=== PATIENT | female | born 1945 | race Caucasian/White ===

== ENCOUNTER 2021-02-28 03:23 | Inpatient (IN) | payer MEDICARE, SELFPAY ==
[2021-02-28] VITALS (15 sets, daily range): BP systolic 117–178; BP diastolic 41–64; PULSE 52–61; RESP 14–18; TEMP 35.8–36.8; O2SAT 96–100; BMI 28.5; BMI 27.8
[2021-02-28 03:45] LABS: Bedside Glucose 113 mg/dL (70-110)
--- NOTE | 2021-02-28 03:59 | CT_ITS ---
EXAM: CT ABDOMEN AND PELVIS WITHOUT INTRAVENOUS CONTRAST CLINICAL INDICATION: lower abdominal pain -- current tx for c-diff TECHNIQUE: Helically acquired images were obtained of the abdomen and pelvis without intravenous contrast. CTDI vol (mGy): 17 DLP vol (mGy-cm): [address] exam was performed using one or more of the following dose reduction techniques: automated exposure control, adjustment of the mA and/or kV according to patient size, and/or use of iterative reconstruction technique. This report was created using [employer] report generation technology. COMPARISON: None. FINDINGS: LOWER THORAX: Moderate-sized pleural effusions with adjacent passive atelectasis. Cardiomegaly. Lung bases are clear. ABDOMEN: LIVER: Unremarkable. Homogeneous. GALLBLADDER AND BILE DUCTS: Unremarkable. No calcified gallstones. No gallbladder distention or wall edema. No intra- or extrahepatic biliary ductal dilation. PANCREAS: Unremarkable. No focal cystic mass. SPLEEN: Few punctate calcified granulomas from old granulomatous disease. Normal size without focal cystic or solid mass. ADRENALS: Unremarkable. No nodules. KIDNEYS AND URETERS: No hydronephrosis. Normal renal size and position. STOMACH AND BOWEL: No colitis or diverticulitis. Circumferential thickening of the wall of the sigmoid colon and a portion of the distal descending colon raises concern for colitis of infectious or inflammatory etiology. No stomach or bowel distention. PELVIS: APPENDIX: No evidence of acute appendicitis. BLADDER: Decompressed bladder with stranding and prominent wall. Correlate with urinalysis to exclude cystitis. REPRODUCTIVE: Unremarkable as visualized. No mass. ABDOMEN and PELVIS: INTRAPERITONEAL SPACE: Complex appearing fluid collection in the left pelvis as seen on image 120 series 2. This probably measures 7.8 x 4.3 cm. No free air. 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 Severe degenerative disc disease at L5-S1. . No suspicious lytic or blastic abnormality. SOFT TISSUES: Anasarca. No discrete abdominal or pelvic wall hernia. VASCULATURE: Unremarkable. Abdominal aorta is non-dilated. LYMPH NODES: Unremarkable. No enlarged lymph nodes. CT/Abdomen/Pelvis without Cont IMPRESSION: 1. 7.8 x 4.3 cm complex fluid collection in the left pelvis. Differential includes but is not limited abscess. 2. Circumferential thickening of the wall of the sigmoid colon and a portion of the distal descending colon raises concern for colitis of infectious or inflammatory etiology. 3. Decompressed bladder with stranding and prominent wall. Correlate with urinalysis to exclude cystitis. Electronically Signed: John Jacobson MD at 4:35 EST Tel , Service support ,
--- NOTE | 2021-02-28 04:08 | EDS_ITS ---
HPI History of Present Illness Chief Complaint: Abd Pain Informant: patient and EMS Narrative Narrative: Patient brought by EMS from [facility] reported increasing confusion. Patient states must been acting goofy therefore EMS was called. She has been at the facility for 2 days after being hospitalized from February 05. She is diagnosed with C. difficile infection. She reports her diarrhea is improving. She states she has had abdominal pain for a long time and is still there. Denies abdominal surgery history. Denies urinary symptoms. Denies vomiting. Denies fevers. She has not been at this facility. She states she was taking care of at [facility]. From paperwork she is currently on vancomycin orally. She is on Plavix reports history of strokes. No coronary history. History of diabetes and hypercholesterolemia. History of ESRD on HD. [facility] Medical History (Updated 02/28/21 @ 07:[address] Gian John DO) Atrial fibrillation Congestive heart failure (CHF) COPD (chronic obstructive pulmonary disease) Diabetes Dialysis patient Kidney disease Pelvic abscess Home Medications Vitamin B and C 1 tab PO/SL DAILY 02/28/21 [History Last Taken Unknown] Zofran 4 mg PO/SL PRN PRN 02/28/21 [History Last Taken Unknown] allopurinol 150 mg PO DAILY 02/28/21 [History Last Taken Unknown] atorvastatin 40 mg PO [facility] 02/28/21 [History Last Taken Unknown] clonidine HCl 0.1 mg PO DAILY 02/28/21 [History Last Taken Unknown] clopidogrel 75 mg PO [facility] 02/28/21 [History Last Taken Unknown] ergocalciferol (vitamin D2) [Vitamin D2] 50,000 unit PO DAILY 02/28/21 [History Last Taken Unknown] escitalopram oxalate 20 mg PO [facility] 02/28/21 [History Last Taken Unknown] furosemide 40 mg PO DAILY 02/28/21 [History Last Taken Unknown] guaifenesin 10 ml PO/SL PRN PRN 02/28/21 [History Last Taken Unknown] hydralazine 50 mg PO Q8H 02/28/21 [History Last Taken Unknown] insulin glargine [Lantus Solostar U-100 Insulin] 15 unit SUBCUT [facility] 02/28/21 [History Last Taken Unknown] isosorbide mononitrate 60 mg PO [facility] 02/28/21 [History Last Taken Unknown] lisinopril 10 mg PO DAILY 02/28/21 [History Last Taken Unknown] metoprolol tartrate 25 mg PO TID 02/28/21 [History Last Taken Unknown] sevelamer carbonate 800 mg PO [facility] 02/28/21 [History Last Taken Unknown] sodium bicarbonate 1,850 mg PO TID 02/28/21 [History Last Taken Unknown] vancomycin 125 mg PO TID 02/28/21 [History Last Taken Unknown] Allergy/AdvReac Type Severity Reaction Status Date / Time Tetanus Vaccines and Toxoid Allergy Swelling Verified 02/28/21 03:31 Family History (Updated 02/28/21 @ 05:[address] Curry Ferro MD) Other Heart disease Peptic ulcer disease Social History Smoking Status: Former smoker ROS ROS ED Constitutional Constitutional ED: Denies chills, fever(s) or sweats Eyes Eyes: Denies change in vision ENT ENT ED: Denies dysphagia or sore throat Cardiovascular Cardiovascular: Denies chest pain, leg edema, palpitations or racing heartbeat Respiratory/Chest Respiratory/Chest: Denies cough, dyspnea or dyspnea on exertion Gastrointestinal Gastrointestinal: Reports abdominal pain and diarrhea; Denies nausea or vomiting Genitourinary Genitourinary ED: Denies dysuria, hematuria or urinary frequency Musculoskeletal Musculoskeletal: Denies back pain, extremity pain or neck pain Integumentary Denies rash or wounds Neurologic Neurologic: Denies headache(s), paresthesias or weakness EXAM Physical Exam Const Vital Signs: 02/28/21 03:25 02/28/21 03:31 02/28/21 05:01 Temperature 96.4 F L 97.4 F L Temperature Source Temporal Temporal Pulse Rate 60 55 L Respiratory Rate 16 18 Blood Pressure 117/54 L 131/64 H Blood Pressure Mean 75 86 Pulse Ox 99 98 Oxygen Delivery Method Room Air Room Air Positive well nourished and well developed General Appearance ED: well developed and NAD HEENT Reports dry mucous membranes normocephalic and atraumatic Mouth ED: Yes dry mucous membranes Mouth: dry mucous membranes Eyes PERRL, EOMs intact bilaterally and conjunctivae normal General Eye ED: Yes normal appearance of both eyes Neck no lymphadenopathy and supple General: Negative for tenderness Chest Wall Chest: Negative for tenderness Resp normal respiratory effort and normal air movement Effort and Inspection: symmetric chest movement; Negative for respiratory distress Cardio regular rate, regular rhythm and no murmurs Peripheral Pulses: pulses 2+ throughout GI normal to inspection, nondistended, normoactive bowel sounds GI Narrative: Tender palpation lower quadrant no guarding or rebound. Palpation: Negative for guarding or rebound tenderness present Back/Spine no CVA tenderness and no thoracic nor lumbar tenderness Extremity normal to inspection General Extremety ED: Negative for edema or tenderness General Extremity: Negative for edema Neuro oriented x3 and no sensory deficits noted Sensorium / Orientation: awake and alert Skin no rashes or lesions noted and no wounds MDM MDM MDM Narrative Medical decision making narrative: Patient afebrile vital signs stable. She is alert and oriented x3. She is tender in the lower quadrant on exam. Reports diarrhea is improving. With her pain on exam work-up was initiated. Abdominal labs white count 12.3 bands of 7. Hemoglobin 11.7. Creatinine 5.06 BUN 36. She does have end-stage renal disease on dialysis, potassium of 4.4. Slight transaminitis AST 164, ALT 184, alk phos 248, total bilirubin 0.8. Lipase is 165. CT scan abdomen pelvis per radiology concerns for complex fluid collection left pelvis of 7.8 x 4.3 cm with abscess as a differential. Also circumferential thickening of the wall of the sigmoid colon and a portion of descending colon concerns for colitis. Currently on treat meant for C. difficile. With her concerning abscess increasing leukocytosis with bands, blood cultures and lactic acid added. Zosyn is added. Records reviewed from [facility] with patient visit over at [facility], white count 3 days ago was 8.2. She did have a noted CT scan a week ago per radiology and report at their facility reported concerns for left adnexal cystic structure. Reviewing of imagings myself appears to be more lateral also more enlarged compared to previous read. I discussed with hospitalist, Dr. Ferro for admission. 0700: I received a call back from surgeon Dr. Singh updated patient's presentation findings. He will see her as a consult. Lab Data Attestation: I reviewed the patient's lab results. Labs: Laboratory Results - last 24 hr 02/28/21 02/28/21 02/28/21 03:35 03:35 03:41 WBC 12.3 H RBC 4.39 Hgb 11.7 L Hct 36.8 L MCV 83.8 MCH 26.7 L MCHC 31.8 L RDW Std Deviation 57.2 H RDW Coeff of Jacinto 18.9 H Plt Count 179 MPV 10.4 Neut % (Auto) Not Reportable Absolute Neuts (auto) 10.2 H Absolute Lymphs (auto) 0.98 Total Counted 100 Neutrophils % (Manual) 76 H Band Neutrophils % 7 H Lymphocytes % (Manual) 8 L Monocytes % (Manual) 3 Metamyelocytes % 3 H Myelocytes % 2 H Promyelocytes % 1 H Diff Path Review May foll Platelet Estimate ADEQUATE RBC Morphology NORM C+C Anisocytosis 2+ Sodium 135 L Potassium 4.4 Chloride 98 Carbon Dioxide 29.0 Anion Gap 8 BUN 36 H Creatinine 5.06 H Estim Creat Clear Calc 8.30 Est GFR (MDRD) Af Amer 11 L Est GFR (MDRD) Non-Af 9 L BUN/Creatinine Ratio 7.1 L Glucose 95 Lactic Acid Calcium 7.8 L Total Bilirubin 0.80 AST 164 H ALT 184 H Alkaline Phosphatase 248 H Total Protein 5.3 L Albumin 1.5 L Globulin 3.8 Albumin/Globulin Ratio 0.4 L Lipase 165 Urine Color Urine Clarity Urine pH Ur Specific [place] Urine Protein Urine Glucose (UA) Urine Ketones Urine Occult Blood Urine Nitrite Urine Bilirubin Urine Urobilinogen Ur Leukocyte Esterase Urine RBC Urine WBC Ur Squamous Epith Cells Ur Transition Epith Cell Ur Renal Epithelial Cell Amorphous Sediment Urine Bacteria Urine Mucus POC Glucose 113 H 02/28/21 02/28/21 04:35 05:00 WBC RBC Hgb Hct MCV MCH MCHC RDW Std Deviation RDW Coeff of Jacinto Plt Count MPV Neut % (Auto) Absolute Neuts (auto) Absolute Lymphs (auto) Total Counted Neutrophils % (Manual) Band Neutrophils % Lymphocytes % (Manual) Monocytes % (Manual) Metamyelocytes % Myelocytes % Promyelocytes % Diff Path Review Platelet Estimate RBC Morphology Anisocytosis Sodium Potassium Chloride Carbon Dioxide Anion Gap BUN Creatinine Estim Creat Clear Calc Est GFR (MDRD) Af Amer Est GFR (MDRD) Non-Af BUN/Creatinine Ratio Glucose Lactic Acid 1.3 Calcium Total Bilirubin AST ALT Alkaline Phosphatase Total Protein Albumin Globulin Albumin/Globulin Ratio Lipase Urine Color Yellow Urine Clarity Cloudy Urine pH 7.0 Ur Specific [place] 1.010 Urine Protein 100 H Urine Glucose (UA) Normal Urine Ketones Negative Urine Occult Blood 10 H Urine Nitrite Positive H Urine Bilirubin Negative Urine Urobilinogen Normal Ur Leukocyte Esterase 500 H Urine RBC 0-5 SEEN Urine WBC >100 SEEN Ur Squamous Epith Cells 0-5 SEEN Ur Transition Epith Cell 0-5 SEEN Ur Renal Epithelial Cell 0-5 SEEN Amorphous Sediment 1+ Urine Bacteria 4+ Urine Mucus 0 SEEN POC Glucose Radiography Diagnostic Testing: Clinical Impression(s) from Imaging Studies Abdomen/Pelvis CT 02/28/21 03:59 IMPRESSION: 1. 7.8 x 4.3 cm complex fluid collection in the left pelvis. Differential includes but is not limited abscess. 2. Circumferential thickening of the wall of the sigmoid colon and a portion of the distal descending colon raises concern for colitis of infectious or inflammatory etiology. 3. Decompressed bladder with stranding and prominent wall. Correlate with urinalysis to exclude cystitis. Electronically Signed: John Jacobson MD at 4:35 EST Tel , Service support , Discharge Plan Triage Chief Complaint: Abd Pain ED Provider: Gian John Dx/Rx/DC Orders Clinical Impression: C. difficile colitis, Intra-abdominal abscess, Acute UTI, End-stage renal disease on hemodialysis Primary Care Provider: Valentín Escobar Disposition Disposition: Acute Care Hospital
[2021-02-28 04:11] LABS: Hematocrit 36.8 % (37-47); Hemoglobin 11.7 g/dL (12.0-15.0); Mean Corp Hgb Conc 31.8 g/dL (32-36); Mean Corpuscular Hgb 26.7 pg (27.0-32.0); Mean Corpuscular Volume 83.8 fL (81-99); Mean Platelet Vol. 10.4 fl (6.2-12.0); POSITIVE COUNT YES; POSITIVE MORPHOLOGY YES; Platelet Count 179 K/mm3 (150-450); RBC Distribution Width CV 18.9 % (11.6-14.6); RBC Distribution Width SD 57.2 fl (35.1-43.9); Red Blood Count 4.39 M/mm3 (4.2-5.4); White Blood Count 12.3 K/mm3 (4.4-11.0)
[2021-02-28 04:13] LABS: Differential Indicated MANUAL DIFF
[2021-02-28 04:25] LABS: ALB/GLOB Ratio 0.4 RATIO (0.9-2.4); AST(SGOT) 164 U/L (15-37); Alanine Aminotransfer ALT/SGPT 184 U/L (13-56); Albumin, Serum 1.5 g/dL (3.2-5.0); Alkaline Phosphatase 248 U/L (45-117); Anion Gap 8 (5-15); BUN 36 mg/dL (7-18); BUN/Creat Ratio 7.1 RATIO (10-20); Calcium,Total 7.8 mg/dL (8.5-10.1); Chloride 98 mmol/L (98-107); Creatinine, Serum 5.06 mg/dL (0.55-1.02); EST Glomerular Filtration Rate 9 mL/min (>60); Est Glom Filt Rate - Afr Amer 11 mL/min (>60); Globulin 3.8 g/dL (2.2-4.2); Glucose 95 mg/dL (74-106); Lipase 165 U/L (73-393); Potassium 4.4 mmol/L (3.5-5.1); Protein, Total 5.3 g/dL (6.4-8.2); Sodium Level 135 mmol/L (136-145)
[2021-02-28 04:43] LABS: Mucous, Urine 0 SEEN /hpf (<or=2+)
[2021-02-28] MEDS: 0.9% Normal Saline 1,000 ML 1000 ML IV (04:45)
[2021-02-28 04:46] LABS: Absolute Neutrophil Count 10.2 X10^3/uL (2.0-7.7)
[2021-02-28 04:47] LABS: Absolute Lymphocyte Count 0.98 X10^3/uL (0.83-4.51); Anisocytosis 2+; Lymphocyte 8 % (19-41); Metamyelocyte 3 % (0-1); Monocyte 3 % (0-10); Myelocyte 2 % (0-0); Neutrophil-Band 7 % (0-5); Neutrophil-Segmented 76 % (47-70); Platelet Estimate ADEQUATE (ADEQ); Promyelocyte 1 % (0-0); Red Cell Morphology NORM C+C NORMAL (NORM C&C); Total Cells Counted 100 (MANUAL DIFF)
[2021-02-28 05:03] LABS: Color, Urine Yellow (Yellow); Glucose, Dipstick Normal (Normal); Ketone-Dipstick Negative (Negative); Leukocyte Esterase-Dipstick 500 /ul (Negative); Nitrite-Dipstick Positive (Negative); Occult Blood-Urine 10 /ul (Negative); Protein-Dipstick 100 mg/dl (Negative); Urine Bilirubin Dipstick Negative (Negative); Urine Clarity Cloudy (Clear); Urine Urobilinogen Normal (Normal)
[2021-02-28 05:12] LABS: Amorphous Sediment 1+; Bacteria 4+ /hpf (None Seen); Red Blood Cells-Urine 0-5 SEEN /hpf (0-5); Renal Epithelial Cells 0-5 SEEN /hpf (0-5); Squamous Epithelial Cells - UA 0-5 SEEN /hpf (5-10); Transitional Epithelial - Ur 0-5 SEEN /hpf (0-5); White Blood Cells >100 SEEN /hpf (0-5)
--- NOTE | 2021-02-28 05:21 | HP.PCM.HOS_ITS ---
HPI - General HPI Narrative JESSIE VAN, is a 75 F with a significant history of end-stage renal disease; atrial fibrillation; COPD; diabetes mellitus; CVA with residual left-sided numbness and on Plavix; who presents at the emergency department with excruciating left lower nonradiating abdominal pain that has been going on since December to January 2021. She reports nausea and vomiting. Last time she vomited was 3 to 4 weeks ago. She denies fever. She reports chills. She had diarrhea but diarrhea is improving. She reports anorexia. Patient was admitted at summertime on 02/20/2021 through 02/25/2021. Patient is currently at the senior care. Patient has completed a course of Dificid and is still on vancomycin 125 mg p.o. 3 times a day. At [facility] reportedly patient had VRE in the urine but it was time as colonization it was not treated. Imaging at [facility] showed a complex multilocular cystic mass in the left adnexa measuring 5.9 x 4.2 cm in diameter, unchanged from that of 12/20/2020. On his presentation initial concern at the senior care was that patient was having altered mental status. However from review of paramedics notes when a primary is got there her altered mental status had resolved. Patient did not want to come to the hospital but patient was reminded by nurses that she also have abdominal pain so she should come to the hospital. Patient subsequently complied [facility] Medical History (Updated 02/28/21 @ 05:[address] Curry Ferro MD) Atrial fibrillation Congestive heart failure (CHF) COPD (chronic obstructive pulmonary disease) Diabetes Dialysis patient Kidney disease Pelvic abscess Home Medications Vitamin B and C 1 tab PO/SL DAILY 02/28/21 [History Last Taken Unknown] Zofran 4 mg PO/SL PRN PRN 02/28/21 [History Last Taken Unknown] allopurinol 150 mg PO DAILY 02/28/21 [History Last Taken Unknown] atorvastatin 40 mg PO [facility] 02/28/21 [History Last Taken Unknown] clonidine HCl 0.1 mg PO DAILY 02/28/21 [History Last Taken Unknown] clopidogrel 75 mg PO [facility] 02/28/21 [History Last Taken Unknown] ergocalciferol (vitamin D2) [Vitamin D2] 50,000 unit PO DAILY 02/28/21 [History Last Taken Unknown] escitalopram oxalate 20 mg PO [facility] 02/28/21 [History Last Taken Unknown] furosemide 40 mg PO DAILY 02/28/21 [History Last Taken Unknown] guaifenesin 10 ml PO/SL PRN PRN 02/28/21 [History Last Taken Unknown] hydralazine 50 mg PO Q8H 02/28/21 [History Last Taken Unknown] insulin glargine [Lantus Solostar U-100 Insulin] 15 unit SUBCUT [facility] 02/28/21 [History Last Taken Unknown] isosorbide mononitrate 60 mg PO [facility] 02/28/21 [History Last Taken Unknown] lisinopril 10 mg PO DAILY 02/28/21 [History Last Taken Unknown] metoprolol tartrate 25 mg PO TID 02/28/21 [History Last Taken Unknown] sevelamer carbonate 800 mg PO [facility] 02/28/21 [History Last Taken Unknown] sodium bicarbonate 1,850 mg PO TID 02/28/21 [History Last Taken Unknown] vancomycin 125 mg PO TID 02/28/21 [History Last Taken Unknown] Allergy/AdvReac Type Severity Reaction Status Date / Time Tetanus Vaccines and Toxoid Allergy Swelling Verified 02/28/21 03:31 Family History (Updated 02/28/21 @ 05:[address] Curry Ferro MD) Other Heart disease Peptic ulcer disease Social History Smoking Status: Former smoker ROS ROS Narrative Constitutional: Reports chills and anorexia. Denies fever, fatigue, and change in weight Eyes: Denies blurry vision, change in eye color, change in vision, discharge from eye(s), double vision, erythema, eye pain, loss of vision or other HEENT: Denies abnormal hearing, dysphagia, ear pain, epistaxis, headache(s), hearing loss, nasal congestion, nasal discharge, post nasal drip, sinus pressure, sore throat or other Cardiovascular: Denies chest pain or palpitations. Denies dyspnea on exertion, orthopnea and paroxysmal nocturnal dyspnea Respiratory/Chest: Denies cough, excessive phlegm production, shortness of breath with exertion and wheezing Gastrointestinal: Reports abdominal pain and diarrhea (improving diarrhea). Denies abdominal pain, coffee ground emesis, constipation, diarrhea, dyspepsia, hematemesis, hematochezia, loose stools, melena, nausea, vomiting or other Genitourinary: Reportedly takes her a long time to empty her bladder. Denies , hematuria, urinary urgency or other Musculoskeletal: Denies arthralgias, back pain, joint pain, joint stiffness, joint swelling, myalgias, neck pain or other Neurologic: Denies abnormal gait, abnormal speech, confusion, disequilibrium, dizziness, focal weakness, headache(s), numbness, paresthesias, seizure-like activity, seizures, syncope, tingling, tremor(s) or other Psychiatric: Denies anxiety, depression, homicidal ideation, suicidal ideation or other Endocrinology: Denies change in body appearance, cold intolerance, excessive sweating, heat intolerance, polydipsia, polyuria or other Hematologic/Lymphatic: Denies anemia, easy bleeding, easy bruising, lymph adenopathy or other Integumentary: Denies rashes Allergic/Immunologic: Denies rhinitis, hives, eczema, asthma or other Vital Signs Vital Signs Vital Signs: 02/28/21 03:25 02/28/21 03:31 02/28/21 05:01 Temperature 96.4 F L 97.4 F L Temperature Source Temporal Temporal Pulse Rate 60 55 L Respiratory Rate 16 18 Blood Pressure 117/54 L 131/64 H Blood Pressure Mean 75 86 Pulse Ox 99 98 Oxygen Delivery Method Room Air Room Air Weight Weight: 75.4 kg Body Mass Index (BMI) 28.5 Physical Exam Narrative Physical exam: General: Well-nourished, well-developed. Head: Normocephalic, atraumatic, no tenderness Eyes: PERRLA, EOMI ENT, no trauma, moist mucous membranes, no rhinorrhea Neck: Nontender, full range of motion, no spinal tenderness, deformities, step- off CVS: Regular rate and rhythm. S1-S2 present. No murmur, gallop or rub. Respiratory : clear to auscultation bilaterally, chest wall nontender, no wheezing Abdomen: Soft, tender left upper and left lower quadrants, nondistended, normal bowel sounds, no masses : Deferred Back: Nontender, no CVA tenderness, no midline spinal tenderness, deformities, step-offs Extremities: Nontender full range of motion, no trauma Skin: Normal color, no trauma, abrasions Neuro: Alert, oriented, cranial nerves II through XII grossly intact. Psychiatry: Normal mood. Normal affect. Not depressed. Not anxious. Results Lab / Micro Data Result Diagrams: 02/28/21 03:35 02/28/21 03:35 Labs: Laboratory Results - last 24 hr 02/28/21 03:35: WBC 12.3 H, RBC 4.39, Hgb 11.7 L, Hct 36.8 L, MCV 83.8, MCH 26.7 L, MCHC 31.8 L, RDW Std Deviation 57.2 H, RDW Coeff of Jacinto 18.9 H, Plt Count 17 9, MPV 10.4, Neut % (Auto) Not Reportable, Absolute Neuts (auto) 10.2 H, Abso lute Lymphs (auto) 0.98, Total Counted 100, Neutrophils % (Manual) 76 H, Band Neutrophils % 7 H, Lymphocytes % (Manual) 8 L, Monocytes % (Manual) 3, Metamyelocytes % 3 H, Myelocytes % 2 H, Promyelocytes % 1 H, Diff Path Review July, Platelet Estimate ADEQUATE, RBC Morphology NORM C+C, Anisocytosis 2+ 02/28/21 03:35: Sodium 135 L, Potassium 4.4, Chloride 98, Carbon Dioxide 29.0, Anion Gap 8, BUN 36 H, Creatinine 5.06 H, Estim Creat Clear Calc 8.30, Est GFR (MDRD) Af Amer 11 L, Est GFR (MDRD) Non-Af 9 L, BUN/Creatinine Ratio 7.1 L, Glucose 95, Calcium 7.8 L, Total Bilirubin 0.80, AST 164 H, ALT 184 H, Alkaline Phosphatase 248 H, Total Protein 5.3 L, Albumin 1.5 L, Globulin 3.8, Albumin/Globulin Ratio 0.4 L, Lipase 165 02/28/21 03:41: POC Glucose 113 H 02/28/21 04:35: Urine Color Yellow, Urine Clarity Cloudy, Urine pH 7.0, Ur Specific [place] 1.010, Urine Protein 100 H, Urine Glucose (UA) Normal, Urine Ketones Negative, Urine Occult Blood 10 H, Urine Nitrite Positive H, Urine Bilirubin Negative, Urine Urobilinogen Normal, Ur Leukocyte Esterase 500 H, Urine RBC 0-5 SEEN, Urine WBC >100 SEEN, Ur Squamous Epith Cells 0-5 SEEN, Ur Transition Epith Cell 0-5 SEEN, Ur Renal Epithelial Cell 0-5 SEEN, Amorphous Sediment 1+, Urine Bacteria 4+, Urine Mucus 0 SEEN Micro: Microbiology 02/28/21 04:53 Nasal Secretion SARS-CoV-2 Antigen (Rapid) - Final Radiology Impression Abdomen/Pelvis CT 02/28/21 03:59 IMPRESSION: 1. 7.8 x 4.3 cm complex fluid collection in the left pelvis. Differential includes but is not limited abscess. 2. Circumferential thickening of the wall of the sigmoid colon and a portion of the distal descending colon raises concern for colitis of infectious or inflammatory etiology. 3. Decompressed bladder with stranding and prominent wall. Correlate with urinalysis to exclude cystitis. Electronically Signed: John Jacobson MD at 4:35 EST Tel , Service support , Assessment & Plan Assessment/Plan (1) C. difficile colitis: (2) Pelvic abscess: (3) VRE (vancomycin resistant enterococcus) culture positive: (4) Cystitis: PLAN: C. difficile colitis/pelvic abscess Patient completed a course of Dificid and is currently on vancomycin 125 mg p.o. 3 times daily. Review of outside records : Discharge note from [facility] described complex multilocular cystic mass in the left adnexa measuring 5.9 x 4.2 cm in diameter, unchanged from 12/20/2020. Radiologist impression of CT of abdomen and pelvis on this presentation showed a 7.8 x 4.3 cm complex fluid collection in the left appendix. Actual abdomen and pelvis CT was independently interpreted and agree radiologist interpretation of a fluid collection. Zosyn ordered at the emergency department Metronidazole IV; vancomycin 500 mg every 6 hours and ceftriaxone ordered We will keep patient n.p.o. except meds. While n.p.o hold home Lasix. Will hold patient Plavix. General surgery consult. Review of labs showed white count 12.3. Review of records from outside hospital showed that on 28 September 2020 white count was 8.2. Blood culture ordered to ED, follow-up Trend CBC and BMP. VRE cystitis From review of discharge summary from [facility] this was not treated as likely it was colonization. CT of abdomen and pelvis did presentation showed decompressed bladder with stranding and prominent wall. Urinalysis is abnormal. Ceftriaxone ordered as above. Urine culture ordered. End-stage renal disease on dialysis Nephrology consult Diabetes mellitus Patient with normal glycemia of 95 on presentation. Hold home regimen especially as patient is n.p.o. Accu-Chek every 6 hours ordered. Hypertension Blood pressure is not within goal Home blood pressure medication continued. As needed hydralazine ordered. Trend blood pressure and adjust blood pressure medications. DVT prophylaxis: SCD ordered Charges/Coding Visit Charges Inpatient E&M: 74542 Init Hosp L3
[2021-02-28 05:56] LABS: Lactic Acid 1.3 mmol/L (0.4-1.9)
--- NOTE | 2021-02-28 06:50 | NURSING ---
103 DR RACHANA PARRAFF COLITIS, INTRAABDOMINAL ABCESS, ESRD ON HD
[2021-02-28] MEDS: Vancomycin 125 MG/5 ML Susp PO.SYRINGE PO ×3 (07:26→16:20)
[2021-02-28] MEDS: Sodium Bicarbonate 650 MG Tablet 1950 MG PO ×3 (07:27→23:17)
[2021-02-28] MEDS: metroNIDAZOLE 500 MG/100 ML BAG 100 MG IV ×3 (07:31→23:13)
[2021-02-28] MEDS: Allopurinol 300 MG Tablet 150 MG PO (07:46)
[2021-02-28] MEDS: cloNIDine HCl 0.1 MG Tablet PO (07:47)
[2021-02-28] MEDS: SEVELAMER CARBONATE 800 MG TABLET PO ×4 (07:47→23:17)
[2021-02-28] MEDS: Lisinopril 10 MG Tablet PO (07:47)
[2021-02-28] MEDS: Vitamin B Comp W-C Capsule 1 CAP PO (07:47)
--- NOTE | 2021-02-28 09:21 | EX.PCM.CON.S ---
Assessment & Plan Assessment/Plan (1) Colonic diverticular abscess: PLAN: Patient will be getting a percutaneous drain placed on Monday. No surgical interventions are planned at this time. HPI Consult Data Date of Consult: 02/28/21 HPI Narrative HPI Narrative: JESSIE VAN, is a 75 F with a significant history of end-stage renal disease; atrial fibrillation; COPD; diabetes mellitus; CVA with residual left-sided numbness and on Plavix; who presents at the emergency department with excruciating left lower nonradiating abdominal pain that has been going on since December to January 2021. She reports nausea and vomiting. Last time she vomited was 3 to 4 weeks ago. She denies fever. She reports chills. She had diarrhea but diarrhea is improving. She reports anorexia. Patient was admitted at summertime on 02/20/2021 through 02/25/2021. Patient is currently at the care home. Patient has completed a course of Dificid and is still on vancomycin 125 mg p.o. 3 times a day. 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 On his presentation initial concern at the care home was that patient was having altered mental status. However from review of paramedics notes when a primary is got there her altered mental status had resolved. Patient did not want to come to the hospital but patient was reminded by nurses that she also have abdominal pain so she should come to the hospital. [facility] Medical History Atrial fibrillation Congestive heart failure (CHF) COPD (chronic obstructive pulmonary disease) Diabetes Dialysis patient Kidney disease Pelvic abscess Home Medications Vitamin B and C 1 tab PO/SL DAILY 02/28/21 [History Last Taken Unknown] Zofran 4 mg PO/SL PRN PRN 02/28/21 [History Last Taken Unknown] allopurinol 150 mg PO DAILY 02/28/21 [History Last Taken Unknown] atorvastatin 40 mg PO [facility] 02/28/21 [History Last Taken Unknown] clonidine HCl 0.1 mg PO DAILY 02/28/21 [History Last Taken Unknown] clopidogrel 75 mg PO [facility] 02/28/21 [History Last Taken Unknown] ergocalciferol (vitamin D2) [Vitamin D2] 50,000 unit PO DAILY 02/28/21 [History Last Taken Unknown] escitalopram oxalate 20 mg PO [facility] 02/28/21 [History Last Taken Unknown] furosemide 40 mg PO DAILY 02/28/21 [History Last Taken Unknown] guaifenesin 10 ml PO/SL PRN PRN 02/28/21 [History Last Taken Unknown] hydralazine 50 mg PO Q8H 02/28/21 [History Last Taken Unknown] insulin glargine [Lantus Solostar U-100 Insulin] 15 unit SUBCUT [facility] 02/28/21 [History Last Taken Unknown] isosorbide mononitrate 60 mg PO [facility] 02/28/21 [History Last Taken Unknown] lisinopril 10 mg PO DAILY 02/28/21 [History Last Taken Unknown] metoprolol tartrate 25 mg PO TID 02/28/21 [History Last Taken Unknown] sevelamer carbonate 800 mg PO [facility] 02/28/21 [History Last Taken Unknown] sodium bicarbonate 1,850 mg PO TID 02/28/21 [History Last Taken Unknown] vancomycin 125 mg PO TID 02/28/21 [History Last Taken Unknown] Allergy/AdvReac Type Severity Reaction Status Date / Time Tetanus Vaccines and Toxoid Allergy Swelling Verified 02/28/21 03:31 Family History Other Heart disease Peptic ulcer disease Social History Smoking Status: Former smoker ROS Constitutional Constitutional: Reports anorexia Cardiovascular Cardiovascular: Denies chest pain Respiratory/Chest Respiratory/Chest: Denies cough or shortness of breath at rest Gastrointestinal Gastrointestinal: Reports abdominal pain and diarrhea Physical Exam Const alert, oriented x3 and no apparent distress General Appearance: cooperative HEENT normocephalic and head/scalp atraumatic Eyes PERRL and EOMs intact bilaterally Resp normal respiratory effort and clear to auscultation bilaterally Cardio Rate: regular rate Rhythm: regular rhythm GI soft to palpation Palpation: tender LLQ Lab / Micro Data Result Diagrams: 02/28/21 03:35 02/28/21 03:35 Labs: Laboratory Results - last 24 hr 02/28/21 03:35: WBC 12.3 H, RBC 4.39, Hgb 11.7 L, Hct 36.8 L, MCV 83.8, MCH 26.7 L, MCHC 31.8 L, RDW Std Deviation 57.2 H, RDW Coeff of Jacinto 18.9 H, Plt Count 179, MPV 10.4, Neut % (Auto) Not Reportable, Absolute Neuts (auto) 10.2 H, Absolute Lymphs (auto) 0.98, Total Counted 100, Neutrophils % (Manual) 76 H, Band Neutrophils % 7 H, Lymphocytes % (Manual) 8 L, Monocytes % (Manual) 3, Metamyelocytes % 3 H, Myelocytes % 2 H, Promyelocytes % 1 H, Diff Path Review July, Platelet Estimate ADEQUATE, RBC Morphology NORM C+C, Anisocytosis 2+ 02/28/21 03:35: Sodium 135 L, Potassium 4.4, Chloride 98, Carbon Dioxide 29.0, Anion Gap 8, BUN 36 H, Creatinine 5.06 H, Estim Creat Clear Calc 8.30, Est GFR (MDRD) Af Amer 11 L, Est GFR (MDRD) Non-Af 9 L, BUN/Creatinine Ratio 7.1 L, Glucose 95, Calcium 7.8 L, Total Bilirubin 0.80, AST 164 H, ALT 184 H, Alkaline Phosphatase 248 H, Total Protein 5.3 L, Albumin 1.5 L, Globulin 3.8, Albumin/Globulin Ratio 0.4 L, Lipase 165 02/28/21 03:41: POC Glucose 113 H 02/28/21 04:35: Urine Color Yellow, Urine Clarity Cloudy, Urine pH 7.0, Ur Specific [place] 1.010, Urine Protein 100 H, Urine Glucose (UA) Normal, Urine Ketones Negative, Urine Occult Blood 10 H, Urine Nitrite Positive H, Urine Bilirubin Negative, Urine Urobilinogen Normal, Ur Leukocyte Esterase 500 H, Urine RBC 0-5 SEEN, Urine WBC >100 SEEN, Ur Squamous Epith Cells 0-5 SEEN, Ur Transition Epith Cell 0-5 SEEN, Ur Renal Epithelial Cell 0-5 SEEN, Amorphous Sediment 1+, Urine Bacteria 4+, Urine Mucus 0 SEEN 02/28/21 05:00: Lactic Acid 1.3 Micro: Microbiology 02/28/21 04:53 Nasal Secretion SARS-CoV-2 Antigen (Rapid) - Final Radiology Impression Abdomen/Pelvis CT 02/28/21 03:59 IMPRESSION: 1. 7.8 x 4.3 cm complex fluid collection in the left pelvis. Differential includes but is not limited abscess. 2. Circumferential thickening of the wall of the sigmoid colon and a portion of the distal descending colon raises concern for colitis of infectious or inflammatory etiology. 3. Decompressed bladder with stranding and prominent wall. Correlate with urinalysis to exclude cystitis. Electronically Signed: John Jacobson MD at 4:35 EST Tel , Service support ,
--- NOTE | 2021-02-28 12:16 | PN.HOSP_ITS ---
Subjective Subjective Follow-up on acute sigmoid diverticular abscess: Patient was seen and examined. She complains of some pain in her lower abdomen. Remains on clear liquid diet. CT-guided drainage planned for a.m. Patient denies any fever or chills. Objective Data Objective Data Vital Signs: Vital Signs Temp Pulse Resp BP Pulse Ox 97.8 F 61 14 150/64 H 98 02/28/21 11:21 02/28/21 11:21 02/28/21 11:21 02/28/21 11:21 02/28/21 11:21 Oxygen Delivery Method Room Air Weight: 73.4 kg Body Mass Index (BMI) 27.8 Intake & Output: Intake and Output for Last 24 Hours 02/26/21 02/27/21 02/28/21 23:59 23:59 23:59 Intake Total 1440 / 1440 Balance 1440 / 1440 Lab / Micro Data Result Diagrams: 02/28/21 03:35 02/28/21 03:35 Labs: Laboratory Results - last 24 hr 02/28/21 03:35: WBC 12.3 H, RBC 4.39, Hgb 11.7 L, Hct 36.8 L, MCV 83.8, MCH 26.7 L, MCHC 31.8 L, RDW Std Deviation 57.2 H, RDW Coeff of Jacinto 18.9 H, Plt Count 179, MPV 10.4, Neut % (Auto) Not Reportable, Absolute Neuts (auto) 10.2 H, Absolute Lymphs (auto) 0.98, Total Counted 100, Neutrophils % (Manual) 76 H, Band Neutrophils % 7 H, Lymphocytes % (Manual) 8 L, Monocytes % (Manual) 3, Metamyelocytes % 3 H, Myelocytes % 2 H, Promyelocytes % 1 H, Diff Path Review July, Platelet Estimate ADEQUATE, RBC Morphology NORM C+C, Anisocytosis 2+ 02/28/21 03:35: Sodium 135 L, Potassium 4.4, Chloride 98, Carbon Dioxide 29.0, Anion Gap 8, BUN 36 H, Creatinine 5.06 H, Estim Creat Clear Calc 8.30, Est GFR (MDRD) Af Amer 11 L, Est GFR (MDRD) Non-Af 9 L, BUN/Creatinine Ratio 7.1 L, Glucose 95, Calcium 7.8 L, Total Bilirubin 0.80, AST 164 H, ALT 184 H, Alkaline Phosphatase 248 H, Total Protein 5.3 L, Albumin 1.5 L, Globulin 3.8, Albumin/Globulin Ratio 0.4 L, Lipase 165 02/28/21 03:41: POC Glucose 113 H 02/28/21 04:35: Urine Color Yellow, Urine Clarity Cloudy, Urine pH 7.0, Ur Specific [place] 1.010, Urine Protein 100 H, Urine Glucose (UA) Normal, Urine Ketones Negative, Urine Occult Blood 10 H, Urine Nitrite Positive H, Urine Bilirubin Negative, Urine Urobilinogen Normal, Ur Leukocyte Esterase 500 H, Urine RBC 0-5 SEEN, Urine WBC >100 SEEN, Ur Squamous Epith Cells 0-5 SEEN, Ur Transition Epith Cell 0-5 SEEN, Ur Renal Epithelial Cell 0-5 SEEN, Amorphous Sediment 1+, Urine Bacteria 4+, Urine Mucus 0 SEEN 02/28/21 05:00: Lactic Acid 1.3 Micro: Microbiology 02/28/21 04:53 Nasal Secretion SARS-CoV-2 Antigen (Rapid) - Final Radiography Diagnostic Testing: Radiology Impression Abdomen/Pelvis CT 02/28/21 03:59 IMPRESSION: 1. 7.8 x 4.3 cm complex fluid collection in the left pelvis. Differential includes but is not limited abscess. 2. Circumferential thickening of the wall of the sigmoid colon and a portion of the distal descending colon raises concern for colitis of infectious or inflammatory etiology. 3. Decompressed bladder with stranding and prominent wall. Correlate with urinalysis to exclude cystitis. Electronically Signed: John Jacobson MD at 4:35 EST Tel , Service support , Physical Exam Narrative Physical exam: General: Alert, Oriented x3, Cooperative, No apparent distress, Well developed HEENT: Atraumatic Oral: Moist Mucosa Neck: Supple Lungs: Clear to auscultation Cardiovascular: HS I+II, regular, no murmurs Abdomen: Bowel Sounds Present, Soft, tenderness in the lower abdomen especially the left lower quadrant, guarding Extremities: No edema Assessment & Plan Assessment/Plan (1) Colonic diverticular abscess: (2) Intra-abdominal abscess: (3) End-stage renal disease on hemodialysis: (4) Acute UTI: PLAN: 1. Acute sigmoid diverticular abscess, seen on CT of the abdomen and pelvis Started on IV ceftriaxone and metronidazole, will continue Continue to hold off on Plavix General surgery following Continue on clear liquid diet Follow-up on blood cultures 2. Recent C. difficile colitis, continue on vancomycin 3. ESRD on hemodialysis, nephrology consulted 4. Type II DM, blood sugars relatively low, Lantus held Continue blood glucose checks with insulin sliding scale Charges/Coding Visit Charges Inpatient E&M: 55423 Subs Hosp L3
[2021-02-28 12:26] LABS: Bedside Glucose 96 mg/dL (70-110)
[2021-02-28 16:11] LABS: Bedside Glucose 99 mg/dL (70-110)
[2021-02-28] MEDS: Menthol/Lanolin/Calamine/Znox 113 GM Tube 1 APPLIC TOPICAL (16:18)
[2021-02-28] MEDS: hydrALAZINE 50 MG Tablet PO ×2 (16:19→23:17)
[2021-02-28] MEDS: Metoprolol Tartrate 25 MG Tablet PO ×2 (16:20→23:49)
[2021-02-28] MEDS: Heparin Injection (Vial) 5,000 UNIT/ML VIAL 5000 UNIT SC (23:16)
[2021-02-28] MEDS: Atorvastatin Calcium 40 MG Tablet PO (23:17)
[2021-02-28] MEDS: Isosorbide Mononitrate 60 MG Tablet PO (23:17)
[2021-02-28] MEDS: Escitalopram Oxalate 20 MG Tablet PO (23:17)
[2021-02-28 23:41] LABS: Bedside Glucose 127 mg/dL (70-110)
[2021-03-01] VITALS (17 sets, daily range): BP systolic 125–176; BP diastolic 35–98; PULSE 60–89; RESP 12–21; TEMP 36.1–36.4; O2SAT 33–100; BMI 28.7
[2021-03-01] MEDS: Vancomycin 125 MG/5 ML Susp PO.SYRINGE PO ×3 (00:57→17:52)
[2021-03-01] MEDS: Menthol/Lanolin/Calamine/Znox 113 GM Tube 1 APPLIC TOPICAL ×4 (00:57→22:14)
[2021-03-01] MEDS: Acetaminophen 325 MG Tablet 650 MG PO ×2 (04:00→12:26)
--- NOTE | 2021-03-01 05:55 | CT_ITS ---
PROCEDURE: CT DIRECTED ABSCESS DRAINAGE, PERITONEAL DATE OF EXAMINATION: 03/01/2021. INDICATION: Female, 75 years old. Left lower quadrant abscess. PHYSICIAN: Arsalan Thomason M.D. CONSENT: Written informed consent was obtained having explained the risks, benefits and alternatives in detail with the patient who accepted the risks and agreed to proceed. Laboratory review and clinical assessment was performed. CONSCIOUS SEDATION PROTOCOL: The Drugs used were: 2 mg Versed, IV., and 75 Fentanyl, IV. The sedation time was: 29 minutes. Conscious sedation was started at 9:51 AM and terminated at 10:20 AM. The conscious sedation protocol was independently monitored. RADIATION DOSAGE (If Supplied By Facility): CTDIvol = ( 16 ) mGy, DLP = ( 470.61 ) mGycm. Individualized dose optimization techniques were utilized. TECHNIQUE: CT sections were made through the abdomen and pelvis revealing an abscess in the left lower quadrant. The skin surface was prepped and draped in a sterile fashion. Puncture of this collection was performed with a 8.5 [place] catheter and fluid was aspirated. Drainage catheter was then inserted into the collection and formed into position. Additional fluid was aspirated for a total of approximately 10 cc of clear fluid. The catheter was sutured into position to allow for continued drainage. Followup CT sections reveals good position of the catheter. CT/CT Guidance Abscess Drg w/Cath IMPRESSION: 1. CT directed drainage of a fluid collection using CT image guidance and image documentation as described. 2. Conscious Sedation protocol utilized with independent monitoring Electronically Signed: Arsalan Thomason MD at 10:46 EST , Service support ,
--- NOTE | 2021-03-01 06:51 | CT_ITS ---
STUDY: CTA HEAD AND NECK WITH CONTRAST REASON FOR EXAM: Female, 75 years old. Stroke symptoms. RADIATION DOSAGE (If Supplied By Facility): CTDIvol = ( 50.35 ) mGy, DLP = ( 733.74 ) mGycm TECHNIQUE: CT angiography was performed with a multi-detector CT scanner. Data acquisition was obtained from the skull base through the vertex following intravenous administration of IV 100mL Isovue-370. with MIP and 3D reconstructed images. Individualized dose optimization techniques were used for this CT. COMPARISON: No relevant priors. FINDINGS: Cervical ICA narrowing is measured per NASCET criteria (% ICA stenosis = (1 - [narrowest ICA diameter/diameter normal distal cervical ICA]) x 100. CTA NECK: Aortic arch: Left-sided 3 vessel aortic arch. Moderate narrowing of the proximal left subclavian artery. Otherwise only mild narrowing of the proximal great vessels. Right carotids: Right CCA: No significant narrowing or dissection. Right ICA: No significant narrowing or dissection. Tortuous distally, loops anteriorly just prior to entering the skull base. Right ECA: No significant narrowing or dissection. Left carotids Left CCA: Long segment, moderate, 50% narrowing of the mid and distal left CCA secondary to calcific plaque. Normal caliber more proximally. Left ICA: Mild, 10%, narrowing of the origin secondary to calcific plaque. Left ECA: Moderate narrowing of the origin. Patent more distal branches. Vertebrals: Codominant vertebral arteries with no significant narrowing and no dissection. CTA HEAD: Intracranial carotids:Multifocal moderate narrowing due to calcific plaque. MCAs:Mild atherosclerotic irregularity. No high-grade narrowing. ACAs:Mild atherosclerotic irregularity. No high-grade narrowing. Basilar:Mild atherosclerotic irregularity. No flow-limiting stenosis. frankfurter inspector:Multifocal mild atherosclerotic irregularity. No high-grade narrowing. Fed by dominant P1 segments bilaterally. Patent bilateral posterior and anterior inferior and superior cerebellar arteries are identified. No evidence of AVM or aneurysm. No intracranial DVT. Nonvascular structures: Dual-lumen dialysis catheter via right IJ extends into the SVC, partially visible. Small layering pleural effusions partially visible. Degenerative changes cervical spine with no evidence of high-grade spinal canal narrowing. Maxillae edentulous dentures in place. CT/STROKE CTA Head AND Neck W/Con IMPRESSION: No large vessel occlusion or high-grade arterial narrowing. Atherosclerosis including moderate narrowing of the proximal left subclavian and mid and distal left common carotid arteries. Small pleural effusions partially visible. N.B. : The above Results were Read Back by Carlos Church MD to Dr. Kasie MD, and understanding confirmed on 03/01/2021 07:44:34 (ET). Electronically Signed: Carlos Church MD at 7:45 EST Tel , Service support ,
--- NOTE | 2021-03-01 06:52 | CT_ITS ---
We are attempting to reach an attending provider to discuss findings. An addendum with communication details will be sent when the communication is complete. STUDY: CT BRAIN WITHOUT CONTRAST REASON FOR EXAM: Female, 75 years old. Stroke symptoms TECHNIQUE: Transaxial CT imaging of the brain was performed without administration of intravenous contrast material. Individualized dose optimization techniques were used for this CT. COMPARISON: No relevant priors. FINDINGS: No evidence of intracranial hemorrhage, mass, acute infarct, or hydrocephalus. Symmetric volume loss. Chronic microangiopathic changes in the white matter. Atherosclerosis of the intracranial arteries. No acute osseous abnormality. Visualized paranasal sinuses and mastoid air cells patent. Visualized extracranial soft tissues unremarkable. ASPECTS 12/27 CT/STROKE Brain/Head without Cont IMPRESSION: No acute intracranial findings. Electronically Signed: Carlos Church MD at 7:22 EST Tel , Service support ,
--- NOTE | 2021-03-01 07:02 | PCM.PN.BLA ---
Progress Note Stroke alert: While raiser helper was in the room patient was stuttering. NIH score obtained by nurses is a 10. Of note on admission patient reported residual left sided numbness from previous stroke. Plavix was held because of possible pelvic abscess evaluation. Patient is a dialysis patient. On bedside exams patient was profusely stuttering. CT head without contrast and CTA head and neck ordered. Her symptoms resolved or was resolving as she was been wheeled for CT. After CT her symptoms had resolved Evaluated by teleneurologist. Per teleneurologist patient likely had a TIA/Encephalopathy from medical condition. If there is LVO call [facility] Teleneurologist. Further stroke work up recommended. Ok to hold Plavix for possible abscess evacuation Patient continues to be at risk for cva secondary to Afib and on therapeutic anticoagulation. Recommend that contrast administration be discussed with nephrology as patient is ESRD on dialysis Radiologist called with a negative CT head and CTA neck read.
[2021-03-01 07:16] LABS: Bedside Glucose 123 mg/dL (70-110)
--- NOTE | 2021-03-01 07:29 | PCS.PANDOC ---
PANDEMIC DOCUMENTATION INITIATED: Date: 03/01/2021 Time: 699
--- NOTE | 2021-03-01 08:07 | NURSING ---
Primary RN reported that rn peritoneal dialysis was in room and reported pt was vomiting. RN went to room and noticed slurring/stuttering speech. Stroke alert called. Blood sugar 123. Performed initial NIH of 9 at 0645. MD at bedside and ordered CT and CTA. Called [facility] and went down w/ pt to CT. Neurologist beamed in and performed assessment. Dr. Ferro at bedside during eval. Repeat NIH 3. Pt transported back to PCU.
[2021-03-01 08:28] LABS: Hematocrit 35.5 % (37-47); Hemoglobin 12.1 g/dL (12.0-15.0); Mean Corp Hgb Conc 34.1 g/dL (32-36); Mean Corpuscular Hgb 27.3 pg (27.0-32.0); Mean Platelet Vol. 10.7 fl (6.2-12.0); POSITIVE COUNT YES; POSITIVE MORPHOLOGY YES; Platelet Count 179 K/mm3 (150-450); RBC Distribution Width CV 18.9 % (11.6-14.6); RBC Distribution Width SD 54.4 fl (35.1-43.9); Red Blood Count 4.44 M/mm3 (4.2-5.4); White Blood Count 15.2 K/mm3 (4.4-11.0)
[2021-03-01 08:30] LABS: Differential Indicated MANUAL DIFF
[2021-03-01 08:36] LABS: International Normalized Ratio 1.5; Prothrombin Time (Protime)PT. 17.6 SECONDS (11.7-14.9)
[2021-03-01 08:37] LABS: Partial Thromboplast Time 33.8 Seconds (24.1-36.2)
[2021-03-01 08:51] LABS: Absolute Neutrophil Count 14.7 X10^3/uL (2.0-7.7); Lymphocyte 1 % (19-41); Metamyelocyte 1 % (0-1); Monocyte 1 % (0-10); Neutrophil # 14.69 X10^3/uL (2.7-7.7); Neutrophil-Band 1 % (0-5); Neutrophil-Segmented 96 % (47-70); Platelet Estimate ADEQUATE (ADEQ); Red Cell Morphology NORM C+C NORMAL (NORM C&C); Total Cells Counted 100 (MANUAL DIFF)
[2021-03-01 08:52] LABS: Absolute Lymphocyte Count 0.15 X10^3/uL (0.83-4.51); Lymphocyte # 0.15 X10^3/ul (0.83-4.51)
[2021-03-01 08:58] LABS: Anion Gap 9 (5-15); BUN 41 mg/dL (7-18); BUN/Creat Ratio 7.7 RATIO (10-20); Calcium,Total 7.6 mg/dL (8.5-10.1); Chloride 101 mmol/L (98-107); EST Glomerular Filtration Rate 8 mL/min (>60); Est Glom Filt Rate - Afr Amer 10 mL/min (>60); Estimated Creatinine Clearance 7.92 ml/min; Glucose 136 mg/dL (74-106); Potassium 4.8 mmol/L (3.5-5.1); Sodium Level 135 mmol/L (136-145)
--- NOTE | 2021-03-01 09:35 | CASEMGMT ---
Patient if from [facility]. SW faxed updates to [facility]. will check with patient to make sure her plan is to return to [facility]. Anjali SALEEM
[2021-03-01] MEDS: fentaNYL 100 MCG/2 ML Ampul IV ×2 (09:51→10:16)
[2021-03-01] MEDS: Midazolam 2 MG/2 ML Syringe IV (09:51)
--- NOTE | 2021-03-01 12:00 | PN.HOSP_ITS ---
Subjective Subjective Patient seen and examined. She had no active complaints today. Overnight, a stroke alert was called on account of patient's stuttering and left-sided numbness. However it appeared that patient had chronic left-sided numbness from a previous stroke. NIH score was apparently 10 at that time. Stroke alert was therefore called and she had CT of the head without contrast and CT of the head and neck all of which were negative for any evidence of stroke and showed patent intracranial arteries. Plavix currently on hold as she is to have drainage of her abscess. She has otherwise remained hemodynamically stable. Objective Data Objective Data Vital Signs: Vital Signs Temp Pulse Resp BP Pulse Ox 96.9 F L 62 13 154/54 H 97 03/01/21 06:45 03/01/21 11:20 03/01/21 11:20 03/01/21 11:20 03/01/21 11:20 Oxygen Flow Rate (L/min) [6] 2 Oxygen Flow Rate (L/min) [5] 2 Oxygen Flow Rate (L/min) [4] 2 Oxygen Flow Rate (L/min) [3] 2 Oxygen Flow Rate (L/min) [2] 2 Oxygen Flow Rate (L/min) [1 ( 2 Initial Baseline)] Oxygen Delivery Method [6] Nasal Cannula Oxygen Delivery Method [5] Nasal Cannula Oxygen Delivery Method [4] Nasal Cannula Oxygen Delivery Method [3] Nasal Cannula Oxygen Delivery Method [2] Nasal Cannula Oxygen Delivery Method [1 ( Nasal Cannula Initial Baseline)] Oxygen Delivery Method Room Air Weight: 167 lb 5.294 oz Body Mass Index (BMI) 28.7 Intake & Output: Intake and Output for Last 24 Hours 02/27/21 02/28/21 03/01/21 23:59 23:59 23:59 Intake Total 2410 / 2410 400 / 400 Balance 2410 / 2410 400 / 400 Medical Nutrition Assessment Dietitian: Malnutrition Criteria Met Start: 02/28/21 12:52 Freq: Status: Active Protocol: Document 02/28/21 12:52 (Rec: 02/28/21 12:52 [id number]) Nutrition Malnutrition Evidence of Malnutrition Exists Yes Malnutrition (severe): Chronic Evidenced By Suboptimal Energy Intake ( Severe),Weight Loss (Severe) Clinical Problem Chronic Disease or Condition Related Malnutrition Etiology severe malnutrition in context of chronic condition ( dialysis) r/t inadequate energy intake w/ increased energy needs d/t ESRD Signs/Symptoms as evidenced by unintentional 44.2#/21% wt loss x 4 months, estimated PO intake meeting < 50% of estimated nutritional needs > 3 months Status Active Problem Recommendation Dietitian Recommendations/Changes When medically indicated, recommend advance diet as tolerated to renal, 2000 calorie, consistent CHO diet. 120mL Nepro CarbSteady ONS 4x/ day w/ medpass. Daily wts. Will consider liberalizing diet if PO intake is poor. Lab / Micro Data Result Diagrams: 03/01/21 08:14 03/01/21 08:14 Labs: Laboratory Results - last 24 hr 02/28/21 12:15: POC Glucose 96 02/28/21 15:33: POC Glucose 99 02/28/21 22:16: POC Glucose 127 H 03/01/21 06:44: POC Glucose 123 H 03/01/21 08:14: WBC 15.2 H, RBC 4.44, Hgb 12.1, Hct 35.5 L, MCV 80.0 L, MCH 27.3, MCHC 34.1 D, RDW Std Deviation 54.4 H, RDW Coeff of Jacinto 18.9 H, Plt Count 179, MPV 10.7, Neut % (Auto) Not Reportable, Absolute Neuts (auto) 14.7 H, Absolute Lymphs (auto) 0.15 L, Total Counted 100, Neutrophils % (Manual) 96 H, Band Neutrophils % 1, Lymphocytes % (Manual) 1 L, Monocytes % (Manual) 1, Metamyelocytes % 1, Diff Path Review May , Platelet Estimate ADEQUATE, RBC Morphology NORM C+C 03/01/21 08:14: Sodium 135 L, Potassium 4.8, Chloride 101, Carbon Dioxide 25.0, Anion Gap 9, BUN 41 H, Creatinine 5.30 H, Estim Creat Clear Calc 7.92, Est GFR (MDRD) Af Amer 10 L, Est GFR (MDRD) Non-Af 8 L, BUN/Creatinine Ratio 7.7 L, Glucose 136 H, Calcium 7.6 L 03/01/21 08:14: PT 17.6 H, INR 1.5, APTT 33.8 Micro: Microbiology 02/28/21 04:35 Urine Catheter - Catheter Urine Culture - Preliminary GPC Poss Enterococcus sp 02/28/21 04:53 Nasal Secretion SARS-CoV-2 Antigen (Rapid) - Final Radiography Diagnostic Testing: Radiology Impression Abscess Drainage CT 03/01/21 05:55 IMPRESSION: 1. CT directed drainage of a fluid collection using CT image guidance and image documentation as described. 2. Conscious Sedation protocol utilized with independent monitoring Electronically Signed: Arsalan Thomason MD at 10:46 EST , Service support , Head/Neck CTA 03/01/21 06:51 IMPRESSION: No large vessel occlusion or high-grade arterial narrowing. Atherosclerosis including moderate narrowing of the proximal left subclavian and mid and distal left common carotid arteries. Small pleural effusions partially visible. N.B. : The above Results were Read Back by Carlos Church MD to Dr. Kasie MD, and understanding confirmed on 03/01/2021 07:44:34 (ET). Electronically Signed: Carlos Church MD at 7:45 EST Tel , Service support , ADDENDUM: 03/01/21 0752 IMPRESSION: No large vessel occlusion or high-grade arterial narrowing. Atherosclerosis including moderate narrowing of the proximal left subclavian and mid and distal left common carotid arteries. Small pleural effusions partially visible. N.B. : The above Results were Read Back by Carlos Church MD to Dr. Kasie MD, and understanding confirmed on 03/01/2021 07:44:34 (ET). Electronically Signed: Carlos Church MD at 7:45 EST Tel , Service support , Brain CT 03/01/21 06:52 IMPRESSION: No acute intracranial findings. Electronically Signed: Carlos Church MD at 7:22 EST Tel , Service support , ADDENDUM: 03/01/21 0751 IMPRESSION: No acute intracranial findings. N.B. : The above Results were Read Back by Carlos Church MD to Dr. Kasie MD, and understanding confirmed on 03/01/2021 07:44:12 (ET). Electronically Signed: Carlos Church MD at 7:22 EST Tel , Service support , Physical Exam Const alert and oriented x3 Orientation / Consciousness: lethargic Exam Limitations: no limitations HEENT head/scalp atraumatic and moist oral mucous membranes Head and Scalp: normocephalic Eyes PERRL and conjunctivae normal Neck no lymphadenopathy Resp normal respiratory effort, no retractions, no use of accessory muscles and clear to auscultation bilaterally Cardio regular rate, regular rhythm, S1 normal heart sound, S2 normal heart sound and no murmurs GI normal to inspection, nondistended, normoactive bowel sounds GI Narrative: mild generalised tenderness, no guarding or rebound tenderness. Extremity normal to inspection Peripheral Pulses: Yes pulses 2+ throughout Skin no rashes or lesions noted Neuro oriented x3, CN's II-XII intact bilaterally and moves all extremities Sensorium / Orientation: awake and alert Psych affect normal Assessment & Plan Assessment/Plan (1) Colonic diverticular abscess: (2) Acute UTI: PLAN: #Acute sigmoid diverticular abscess * for CT guided drainage of abscess today. * CT scan showed a 7.8 x 4.3 complex fluid collection in the left pelvis with circumferential thickening of the wall of the sigmoid colon and a portion of the distal descending colon. * General surgery on board. On IV ceftriaxone and metronidazole. Plavix currently on hold. * Blood cultures pending. * #? TIA: * Patient noted to have a stuttering episode today which is completely resolved today. CT of the brain was negative for stroke and CTA of the head and neck was negative for any large vessel occlusion or any significant stenosis. * Stroke alert was called and does not seem like patient was thought to have a stroke. * Plavix currently on hold on account of her going for CT-guided drainage. * On high intensity statin. * Will get MRI of the brain. * #Recent history of C. difficile colitis: On vancomycin #ESRD on hemodialysis: Nephrology on board. For dialysis as scheduled. On sevelamer and sodium bicarb #Hypertension: On lisinopril and metoprolol #Type 2 diabetes mellitus: Lantus on hold. Insulin sliding scale. Accu-Cheks AC at bedtime. DVT prophylaxis: SCDs Charges/Coding Visit Charges Inpatient E&M: 07004 Subs Hosp L3
[2021-03-01] MEDS: SEVELAMER CARBONATE 800 MG TABLET PO ×3 (12:26→22:25)
[2021-03-01 12:35] LABS: Bedside Glucose 142 mg/dL (70-110)
--- NOTE | 2021-03-01 12:46 | PCM.CONS.R ---
HPI Consult Data Date of Consult: 03/01/21 HPI Narrative HPI Narrative: JESSIE VAN, is a 75 F who ESRD presents with UTI [facility] Medical History Atrial fibrillation Congestive heart failure (CHF) COPD (chronic obstructive pulmonary disease) Diabetes Dialysis patient Kidney disease Pelvic abscess Home Medications Vitamin B and C 1 tab PO/SL DAILY 02/28/21 [History Last Taken Unknown] Zofran 4 mg PO/SL PRN PRN 02/28/21 [History Last Taken Unknown] allopurinol 150 mg PO DAILY 02/28/21 [History Last Taken Unknown] atorvastatin 40 mg PO HS 02/28/21 [History Last Taken Unknown] clonidine HCl 0.1 mg PO DAILY 02/28/21 [History Last Taken Unknown] clopidogrel 75 mg PO HS 02/28/21 [History Last Taken Unknown] ergocalciferol (vitamin D2) [Vitamin D2] 50,000 unit PO DAILY 02/28/21 [History Last Taken Unknown] escitalopram oxalate 20 mg PO [facility] 02/28/21 [History Last Taken Unknown] furosemide 40 mg PO DAILY 02/28/21 [History Last Taken Unknown] guaifenesin 10 ml PO/SL PRN PRN 02/28/21 [History Last Taken Unknown] hydralazine 50 mg PO Q8H 02/28/21 [History Last Taken Unknown] insulin glargine [Lantus Solostar U-100 Insulin] 15 unit SUBCUT [facility] 02/28/21 [History Last Taken Unknown] isosorbide mononitrate 60 mg PO [facility] 02/28/21 [History Last Taken Unknown] lisinopril 10 mg PO DAILY 02/28/21 [History Last Taken Unknown] metoprolol tartrate 25 mg PO TID 02/28/21 [History Last Taken Unknown] sevelamer carbonate [address] [facility] 02/28/21 [History Last Taken Unknown] sodium bicarbonate 1,850 mg PO TID 02/28/21 [History Last Taken Unknown] vancomycin 125 mg PO TID 02/28/21 [History Last Taken Unknown] Allergy/AdvReac Type Severity Reaction Status Date / Time Tetanus Vaccines and Toxoid Allergy Swelling Verified 03/01/21 09:15 Family History Other Heart disease Peptic ulcer disease Social History Smoking Status: Former smoker ROS ROS Narrative Constitutional: Reports chills and anorexia. Denies fever, fatigue, and change in weight Eyes: Denies blurry vision, change in eye color, change in vision, discharge from eye(s), double vision, erythema, eye pain, loss of vision or other HEENT: Denies abnormal hearing, dysphagia, ear pain, epistaxis, headache(s), hearing loss, nasal congestion, nasal discharge, post nasal drip, sinus pressure, sore throat or other Cardiovascular: Denies chest pain or palpitations. Denies dyspnea on exertion, orthopnea and paroxysmal nocturnal dyspnea Respiratory/Chest: Denies cough, excessive phlegm production, shortness of breath with exertion and wheezing Gastrointestinal: Reports abdominal pain and diarrhea (improving diarrhea). Denies abdominal pain, coffee ground emesis, constipation, diarrhea, dyspepsia, hematemesis, hematochezia, loose stools, melena, nausea, vomiting or other Genitourinary: Reportedly takes her a long time to empty her bladder. Denies , hematuria, urinary urgency or other Musculoskeletal: Denies arthralgias, back pain, joint pain, joint stiffness, joint swelling, myalgias, neck pain or other Neurologic: Denies abnormal gait, abnormal speech, confusion, disequilibrium, dizziness, focal weakness, headache(s), numbness, paresthesias, seizure-like activity, seizures, syncope, tingling, tremor(s) or other Psychiatric: Denies anxiety, depression, homicidal ideation, suicidal ideation or other Endocrinology: Denies change in body appearance, cold intolerance, excessive sweating, heat intolerance, polydipsia, polyuria or other Hematologic/Lymphatic: Denies anemia, easy bleeding, easy bruising, lymphadenopathy or other Integumentary: Denies rashes Allergic/Immunologic: Denies rhinitis, hives, eczema, asthma or other Constitutional Constitutional: Reports anorexia; Denies chills or fever(s) Eyes Eyes: Denies change in vision ENT HEENT: Denies dysphagia or sore throat Cardiovascular Cardiovascular: Denies chest pain, leg edema, palpitations or racing heartbeat Respiratory/Chest Respiratory/Chest: Denies cough, dyspnea, dyspnea on exertion or shortness of breath at rest Gastrointestinal Gastrointestinal: Reports abdominal pain and diarrhea; Denies nausea or vomiting Genitourinary Genitourinary: Denies dysuria, hematuria or urinary frequency Musculoskeletal Musculoskeletal: Denies back pain, extremity pain or neck pain Integumentary Integumentary: Denies rash or wounds Neurologic Neurologic: Denies headache(s), paresthesias or weakness Medical Records Data Medical Nutrition Assessment Dietitian: Malnutrition Criteria Met Start: 02/28/21 12:52 Freq: Status: Active Protocol: Document 02/28/21 12:52 AG (Rec: 02/28/21 12:52 AG [id number]) Nutrition Malnutrition Evidence of Malnutrition Exists Yes Malnutrition (severe): Chronic Evidenced By Suboptimal Energy Intake ( Severe),Weight Loss (Severe) Clinical Problem Chronic Disease or Condition Related Malnutrition Etiology severe malnutrition in context of chronic condition ( dialysis) r/t inadequate energy intake w/ increased energy needs d/t ESRD Signs/Symptoms as evidenced by unintentional 44.2#/21% wt loss x 4 months, estimated PO intake meeting < 50% of estimated nutritional needs > 3 months Status Active Problem Recommendation Dietitian Recommendations/Changes When medically indicated, recommend advance diet as tolerated to renal, 2000 calorie, consistent CHO diet. 120mL Nepro CarbSteady ONS 4x/ day w/ medpass. Daily wts. Will consider liberalizing diet if PO intake is poor. Lab / Micro Data Result Diagrams: 03/01/21 08:14 03/01/21 08:14 Labs: Laboratory Results - last 24 hr 02/28/21 15:33: POC Glucose 99 02/28/21 22:16: POC Glucose 127 H 03/01/21 06:44: POC Glucose 123 H 03/01/21 08:14: WBC 15.2 H, RBC 4.44, Hgb 12.1, Hct 35.5 L, MCV 80.0 L, MCH 27.3, MCHC 34.1 D, RDW Std Deviation 54.4 H, RDW Coeff of Jacinto 18.9 H, Plt Count 179, MPV 10.7, Neut % (Auto) Not Reportable, Absolute Neuts (auto) 14.7 H, Absolute Lymphs (auto) 0.15 L, Total Counted 100, Neutrophils % (Manual) 96 H, Band Neutrophils % 1, Lymphocytes % (Manual) 1 L, Monocytes % (Manual) 1, Metamyelocytes % 1, Diff Path Review May foll, Platelet Estimate ADEQUATE, RBC Morphology NORM C+C 03/01/21 08:14: Sodium 135 L, Potassium 4.8, Chloride 101, Carbon Dioxide 25.0, Anion Gap 9, BUN 41 H, Creatinine 5.30 H, Estim Creat Clear Calc 7.92, Est GFR (MDRD) Af Amer 10 L, Est GFR (MDRD) Non-Af 8 L, BUN/Creatinine Ratio 7.7 L, Glucose 136 H, Calcium 7.6 L 03/01/21 08:14: PT 17.6 H, INR 1.5, APTT 33.8 03/01/21 12:27: POC Glucose 142 H Micro: Microbiology 02/28/21 04:35 Urine Catheter - Catheter Urine Culture - Preliminary GPC Poss Enterococcus sp Radiology Impression Abscess Drainage CT 03/01/21 05:55 IMPRESSION: 1. CT directed drainage of a fluid collection using CT image guidance and image documentation as described. 2. Conscious Sedation protocol utilized with independent monitoring Electronically Signed: Arsalan Thomason MD at 10:46 EST , Service support , Head/Neck CTA 03/01/21 06:51 IMPRESSION: No large vessel occlusion or high-grade arterial narrowing. Atherosclerosis including moderate narrowing of the proximal left subclavian and mid and distal left common carotid arteries. Small pleural effusions partially visible. N.B. : The above Results were Read Back by Carlos Church MD to Dr. Kasie MD, and understanding confirmed on 03/01/2021 07:44:34 (ET). Electronically Signed: Carlos Church MD at 7:45 EST Tel , Service support , ADDENDUM: 03/01/21 0752 IMPRESSION: No large vessel occlusion or high-grade arterial narrowing. Atherosclerosis including moderate narrowing of the proximal left subclavian and mid and distal left common carotid arteries. Small pleural effusions partially visible. N.B. : The above Results were Read Back by Carlos Church MD to Dr. Kasie MD, and understanding confirmed on 03/01/2021 07:44:34 (ET). Electronically Signed: Carlos Church MD at 7:45 EST Tel , Service support , Brain CT 03/01/21 06:52 IMPRESSION: No acute intracranial findings. Electronically Signed: Carlos Church MD at 7:22 EST Tel , Service support , ADDENDUM: 03/01/21 0751 IMPRESSION: No acute intracranial findings. N.B. : The above Results were Read Back by Carlos Church MD to Dr. Kasie MD, and understanding confirmed on 03/01/2021 07:44:12 (ET). Electronically Signed: Carlos Church MD at 7:22 EST Tel , Service support ,
--- NOTE | 2021-03-01 13:22 | CASEMGMT ---
Addendum entered by Chloe Flores 03/01/21 13:28: SW did also call daughter Miriam, she also confirmed discharge plan will be for pt to return to [facility] at discharge. She explained pt was at the retirement for about 10 days and went home. She then ended up back in the hospital, back to [facility], and now back to the hospital again. SW explained we will let her know when pt is ready for discharge back to [facility]. Daughter states understanding. Plan continues to be for pt to return to [facility], skilled level of care, at discharge. DALE Estrella Original Note: Social Work SW met w/pt in room, confirmed plan will be to return to [facility] at discharge. Pt states she has only been there a few days, and will return. SW will continue to follow for return to [facility], [place] when pt is medically ready. DALE Estrella
[2021-03-01] MEDS: Metoprolol Tartrate 25 MG Tablet PO ×2 (14:22→22:25)
[2021-03-01] MEDS: metroNIDAZOLE 500 MG/100 ML BAG 100 MG IV ×2 (14:22→23:41)
[2021-03-01] MEDS: 0.9% Saline Lock 10 ML Syringe IV ×2 (14:22→22:13)
[2021-03-01] MEDS: hydrALAZINE 50 MG Tablet PO ×2 (14:22→22:25)
[2021-03-01] MEDS: Sodium Bicarbonate 650 MG Tablet 1950 MG PO ×2 (14:23→22:25)
--- NOTE | 2021-03-01 15:14 | PCM.PN.SRG ---
Subjective Subjective Patient feels significantly better today. Successful drain placement via interventional radiology via CT. Objective Data Objective Data Abdomen is soft no rebound guarding or peritoneal signs Vital Signs: Vital Signs Temp Pulse Resp BP Pulse Ox 97.4 F L 66 19 H 149/98 H 100 03/01/21 12:00 03/01/21 14:22 03/01/21 12:00 03/01/21 14:22 03/01/21 12:00 Oxygen Flow Rate (L/min) [6] 2 Oxygen Flow Rate (L/min) [5] 2 Oxygen Flow Rate (L/min) [4] 2 Oxygen Flow Rate (L/min) [3] 2 Oxygen Flow Rate (L/min) [2] 2 Oxygen Flow Rate (L/min) [1 ( 2 Initial Baseline)] Oxygen Delivery Method [6] Nasal Cannula Oxygen Delivery Method [5] Nasal Cannula Oxygen Delivery Method [4] Nasal Cannula Oxygen Delivery Method [3] Nasal Cannula Oxygen Delivery Method [2] Nasal Cannula Oxygen Delivery Method [1 ( Nasal Cannula Initial Baseline)] Oxygen Delivery Method Room Air Weight: 167 lb 5.294 oz Body Mass Index (BMI) 28.7 Intake & Output: Intake and Output for Last 24 Hours 02/27/21 02/28/21 03/01/21 23:59 23:59 23:59 Intake Total 2410 / 2410 400 / 400 Balance 2410 / 2410 400 / 400 Medical Nutrition Assessment Dietitian: Malnutrition Criteria Met Start: 02/28/21 12:52 Freq: Status: Active Protocol: Document 02/28/21 12:52 (Rec: 02/28/21 12:52 [id number]) Nutrition Malnutrition Evidence of Malnutrition Exists Yes Malnutrition (severe): Chronic Evidenced By Suboptimal Energy Intake ( Severe),Weight Loss (Severe) Clinical Problem Chronic Disease or Condition Related Malnutrition Etiology severe malnutrition in context of chronic condition ( dialysis) r/t inadequate energy intake w/ increased energy needs d/t ESRD Signs/Symptoms as evidenced by unintentional 44.2#/21% wt loss x 4 months, estimated PO intake meeting < 50% of estimated nutritional needs > 3 months Status Active Problem Recommendation Dietitian Recommendations/Changes When medically indicated, recommend advance diet as tolerated to renal, 2000 calorie, consistent CHO diet. 120mL Nepro CarbSteady ONS 4x/ day w/ medpass. Daily wts. Will consider liberalizing diet if PO intake is poor. Lab / Micro Data Result Diagrams: 03/01/21 08:14 03/01/21 08:14 Labs: Laboratory Results - last 24 hr 02/28/21 15:33: POC Glucose 99 02/28/21 22:16: POC Glucose 127 H 03/01/21 06:44: POC Glucose 123 H 03/01/21 08:14: WBC 15.2 H, RBC 4.44, Hgb 12.1, Hct 35.5 L, MCV 80.0 L, MCH 27.3, MCHC 34.1 D, RDW Std Deviation 54.4 H, RDW Coeff of Jacinto 18.9 H, Plt Count 179, MPV 10.7, Neut % (Auto) Not Reportable, Absolute Neuts (auto) 14.7 H, Absolute Lymphs (auto) 0.15 L, Total Counted 100, Neutrophils % (Manual) 96 H, Band Neutrophils % 1, Lymphocytes % (Manual) 1 L, Monocytes % (Manual) 1, Metamyelocytes % 1, Diff Path Review May foll, Platelet Estimate ADEQUATE, RBC Morphology NORM C+C 03/01/21 08:14: Sodium 135 L, Potassium 4.8, Chloride 101, Carbon Dioxide 25.0, Anion Gap 9, BUN 41 H, Creatinine 5.30 H, Estim Creat Clear Calc 7.92, Est GFR (MDRD) Af Amer 10 L, Est GFR (MDRD) Non-Af 8 L, BUN/Creatinine Ratio 7.7 L, Glucose 136 H, Calcium 7.6 L 03/01/21 08:14: PT 17.6 H, INR 1.5, APTT 33.8 03/01/21 12:27: POC Glucose 142 H Micro: Microbiology 02/28/21 04:35 Urine Catheter - Catheter Urine Culture - Preliminary GPC Poss Enterococcus sp 02/28/21 04:53 Nasal Secretion SARS-CoV-2 Antigen (Rapid) - Final Radiography Diagnostic Testing: Radiology Impression Abscess Drainage CT 03/01/21 05:55 IMPRESSION: 1. CT directed drainage of a fluid collection using CT image guidance and image documentation as described. 2. Conscious Sedation protocol utilized with independent monitoring Electronically Signed: Arsalan Thomason MD at 10:46 EST , Service support , Head/Neck CTA 03/01/21 06:51 IMPRESSION: No large vessel occlusion or high-grade arterial narrowing. Atherosclerosis including moderate narrowing of the proximal left subclavian and mid and distal left common carotid arteries. Small pleural effusions partially visible. N.B. : The above Results were Read Back by Carlos Church MD to Dr. Kasie MD, and understanding confirmed on 03/01/2021 07:44:34 (ET). Electronically Signed: Carlos Church MD at 7:45 EST Tel , Service support , ADDENDUM: 03/01/21 0752 IMPRESSION: No large vessel occlusion or high-grade arterial narrowing. Atherosclerosis including moderate narrowing of the proximal left subclavian and mid and distal left common carotid arteries. Small pleural effusions partially visible. N.B. : The above Results were Read Back by Carlos Church MD to Dr. Kasie MD, and understanding confirmed on 03/01/2021 07:44:34 (ET). Electronically Signed: Carlos Church MD at 7:45 EST Tel , Service support , Brain CT 03/01/21 06:52 IMPRESSION: No acute intracranial findings. Electronically Signed: Carlos Church MD at 7:22 EST Tel , Service support , ADDENDUM: 03/01/21 0751 IMPRESSION: No acute intracranial findings. N.B. : The above Results were Read Back by Carlos Church MD to Dr. Kasie MD, and understanding confirmed on 03/01/2021 07:44:12 (ET). Electronically Signed: Carlos Church MD at 7:22 EST Tel , Service support , Assessment & Plan Assessment/Plan (1) Colonic diverticular abscess: PLAN: We will see patient in an outpatient standing and get her set up to have an elective sigmoid colon resection.
[2021-03-01 18:01] LABS: Bedside Glucose 156 mg/dL (70-110)
--- NOTE | 2021-03-01 21:30 | DIALYSIS ---
Hemodialysis today as ordered. tolerated ok 3k access RCVC. uf -800ml
[2021-03-01] MEDS: Ondansetron 4 MG/2 ML Vial IV (22:13)
[2021-03-01] MEDS: Isosorbide Mononitrate 60 MG Tablet PO (22:25)
[2021-03-01] MEDS: Escitalopram Oxalate 20 MG Tablet PO (22:25)
[2021-03-01] MEDS: Atorvastatin Calcium 40 MG Tablet PO (22:25)
[2021-03-01] MEDS: Heparin Injection (Vial) 5,000 UNIT/ML VIAL 5000 UNIT SC (22:30)
[2021-03-02] VITALS (10 sets, daily range): BP systolic 118–141; BP diastolic 43–69; PULSE 63–65; RESP 16–18; TEMP 36.4–36.9; O2SAT 95–97
[2021-03-02 00:10] LABS: Bedside Glucose 182 mg/dL (70-110)
[2021-03-02] MEDS: Vancomycin 125 MG/5 ML Susp PO.SYRINGE PO ×3 (00:10→11:50)
[2021-03-02 06:26] LABS: Hematocrit 40.7 % (37-47); Hemoglobin 12.4 g/dL (12.0-15.0); Mean Corp Hgb Conc 30.5 g/dL (32-36); Mean Corpuscular Hgb 26.8 pg (27.0-32.0); Mean Corpuscular Volume 87.9 fL (81-99); Mean Platelet Vol. 10.5 fl (6.2-12.0); POSITIVE COUNT YES; POSITIVE MORPHOLOGY YES; Platelet Count 172 K/mm3 (150-450); RBC Distribution Width CV 19.8 % (11.6-14.6); Red Blood Count 4.63 M/mm3 (4.2-5.4); White Blood Count 13.8 K/mm3 (4.4-11.0)
[2021-03-02] MEDS: metroNIDAZOLE 500 MG/100 ML BAG 100 MG IV ×2 (06:27→14:56)
[2021-03-02] MEDS: Menthol/Lanolin/Calamine/Znox 113 GM Tube 1 APPLIC TOPICAL ×2 (06:27→14:56)
[2021-03-02] MEDS: Metoprolol Tartrate 25 MG Tablet PO ×2 (06:31→14:55)
[2021-03-02] MEDS: Sodium Bicarbonate 650 MG Tablet 1950 MG PO ×2 (06:31→14:55)
[2021-03-02] MEDS: hydrALAZINE 50 MG Tablet PO ×2 (06:32→14:55)
[2021-03-02 06:37] LABS: Differential Indicated MANUAL DIFF; Scan Smear per Review Criteria MANUAL DIFF
[2021-03-02 06:46] LABS: Anion Gap 5 (5-15); BUN 29 mg/dL (7-18); BUN/Creat Ratio 6.6 RATIO (10-20); Calcium,Total 7.7 mg/dL (8.5-10.1); Chloride 103 mmol/L (98-107); EST Glomerular Filtration Rate 10 mL/min (>60); Est Glom Filt Rate - Afr Amer 13 mL/min (>60); Estimated Creatinine Clearance 9.54 ml/min; Glucose 136 mg/dL (74-106); Sodium Level 138 mmol/L (136-145)
[2021-03-02 07:02] LABS: Absolute Neutrophil Count 11.5 X10^3/uL (2.0-7.7)
[2021-03-02 07:03] LABS: Anisocytosis 2+; Atypical Lymphocyte 2+ %; Lymphocyte 13 % (19-41); Metamyelocyte 2 % (0-1); Monocyte 1 % (0-10); Myelocyte 1 % (0-0); Neutrophil-Band 5 % (0-5); Neutrophil-Segmented 78 % (47-70); Platelet Estimate ADEQUATE (ADEQ); Red Cell Morphology NORM C+C NORMAL (NORM C&C); Total Cells Counted 100 (MANUAL DIFF)
[2021-03-02 07:06] LABS: Bedside Glucose 131 mg/dL (70-110)
[2021-03-02 09:10] LABS: Pathologist Review Reviewed
[2021-03-02 09:20] LABS: Pathologist Review Reviewed
[2021-03-02] MEDS: Lisinopril 10 MG Tablet PO (09:38)
[2021-03-02] MEDS: Allopurinol 300 MG Tablet 150 MG PO (09:38)
[2021-03-02] MEDS: Heparin Injection (Vial) 5,000 UNIT/ML VIAL 5000 UNIT SC (09:39)
[2021-03-02] MEDS: SEVELAMER CARBONATE 800 MG TABLET PO ×2 (09:39→11:50)
[2021-03-02] MEDS: Vitamin B Comp W-C Capsule 1 CAP PO (09:39)
[2021-03-02] MEDS: cloNIDine HCl 0.1 MG Tablet PO (09:39)
--- NOTE | 2021-03-02 11:10 | PN.SURG_ITS ---
Subjective Subjective Patient has positive flatus cannot recall having a bowel movement. Objective Data Objective Data Abdomen is soft nontender Vital Signs: Vital Signs Temp Pulse Resp BP Pulse Ox 97.6 F L 65 18 138/54 H 97 03/02/21 09:35 03/02/21 09:35 03/02/21 09:35 03/02/21 09:35 03/02/21 09:35 Oxygen Flow Rate (L/min) [6] 2 Oxygen Flow Rate (L/min) [5] 2 Oxygen Flow Rate (L/min) [4] 2 Oxygen Flow Rate (L/min) [3] 2 Oxygen Flow Rate (L/min) [2] 2 Oxygen Flow Rate (L/min) [1 ( 2 Initial Baseline)] Oxygen Delivery Method [6] Nasal Cannula Oxygen Delivery Method [5] Nasal Cannula Oxygen Delivery Method [4] Nasal Cannula Oxygen Delivery Method [3] Nasal Cannula Oxygen Delivery Method [2] Nasal Cannula Oxygen Delivery Method [1 ( Nasal Cannula Initial Baseline)] Oxygen Delivery Method Room Air Weight: 162 lb 14.746 oz Body Mass Index (BMI) 28.7 Intake & Output: Intake and Output for Last 24 Hours 02/28/21 03/01/21 03/02/21 23:59 23:59 23:59 Intake Total 2410 / 2410 550 / 550 200 / 200 Balance 2410 / 2410 550 / 550 200 / 200 Medical Nutrition Assessment Dietitian: Malnutrition Criteria Met Start: 02/28/21 12:52 Freq: Status: Active Protocol: Document 02/28/21 12:52 (Rec: 02/28/21 12:52 [id number]) Nutrition Malnutrition Evidence of Malnutrition Exists Yes Malnutrition (severe): Chronic Evidenced By Suboptimal Energy Intake ( Severe),Weight Loss (Severe) Clinical Problem Chronic Disease or Condition Related Malnutrition Etiology severe malnutrition in context of chronic condition ( dialysis) r/t inadequate energy intake w/ increased energy needs d/t ESRD Signs/Symptoms as evidenced by unintentional 44.2#/21% wt loss x 4 months, estimated PO intake meeting < 50% of estimated nutritional needs > 3 months Status Active Problem Recommendation Dietitian Recommendations/Changes When medically indicated, recommend advance diet as tolerated to renal, 2000 calorie, consistent CHO diet. 120mL Nepro CarbSteady ONS 4x/ day w/ medpass. Daily wts. Will consider liberalizing diet if PO intake is poor. Lab / Micro Data Result Diagrams: 03/02/21 06:15 03/02/21 06:15 Labs: Laboratory Results - last 24 hr 02/28/21 03:35: Diff Path Review Reviewed 03/01/21 08:14: Diff Path Review Reviewed 03/01/21 12:27: POC Glucose 142 H 03/01/21 17:53: POC Glucose 156 H 03/02/21 00:03: POC Glucose 182 H 03/02/21 06:15: WBC 13.8 H, RBC 4.63, Hgb 12.4, Hct 40.7, MCV 87.9 D, MCH 26.8 L, MCHC 30.5 L D, RDW Std Deviation 63.0 H, RDW Coeff of Jacinto 19.8 H, Plt Count 172, MPV 10.5, Immature Gran % (Auto) TANKAGE GRINDER, Neut % (Auto) TANKAGE GRINDER, Lymph % (Auto) TANKAGE GRINDER, [place]s % (Auto) TANKAGE GRINDER, Eos % (Auto) TANKAGE GRINDER, Baso % (Auto) TANKAGE GRINDER, Absolute Neuts (auto) 11.5 H, Absolute Lymphs (auto) 1.80, Total Counted 100, Neutrophils % (Manual) 78 H, Band Neutrophils % 5, Lymphocytes % (Manual) 13 L, Monocytes % (Manual) 1, Metamyelocytes % 2 H, Myelocytes % 1 H, Nucleated RBC % TANKAGE GRINDER, Diff Path Review May foll, Atypical Lymphocytes 2+, Platelet Estimate ADEQUATE, RBC Morphology NORM C+C, Anisocytosis 2+ 03/02/21 06:15: Sodium 138, Potassium 5.0, Chloride 103, Carbon Dioxide 30.0, Anion Gap 5, BUN 29 H, Creatinine 4.40 H, Estim Creat Clear Calc 9.54, Est GFR (MDRD) Af Amer 13 L, Est GFR (MDRD) Non-Af 10 L, BUN/Creatinine Ratio 6.6 L, Glucose 136 H, Calcium 7.7 L 03/02/21 06:52: POC Glucose 131 H Micro: Microbiology 02/28/21 05:00 Blood Culture (Wb) - Left Hand Blood Culture - Preliminary No growth in 48 hours. 02/28/21 04:40 Blood Culture (Wb) - Anticubital Left Blood Culture - Preliminary No growth in 48 hours. 02/28/21 04:35 Urine Catheter - Catheter Urine Culture - Final Vancomycin Resist. E. faecium 02/28/21 04:53 Nasal Secretion SARS-CoV-2 Antigen (Rapid) - Final Assessment & Plan Assessment/Plan (1) Colonic diverticular abscess: PLAN: We will see the patient in an outpatient setting. Will sign off for now.
--- NOTE | 2021-03-02 11:36 | CASEMGMT ---
Updates faxed to [facility]. Anjali Carlos STRUCTURAL STEEL PAINTER SEAT COVER CUTTER
--- NOTE | 2021-03-02 11:52 | PCM.DC.SUM ---
Providers Date of Admission: 02/28/21 Primary Care Physician: Dr. Valentín Escobar MD Consultations 02/28/21 06:48 Consult: General Surgery Routine Consulting Provider: Clint Singh Reason for Consult: C-diff colitis with abdominal abscess EMERGENT Consult: No Notified: Yes Date Notified: 02/28/21 Time Notified: 05:17 Method of Notification: Verbal Consult: Nephrology Routine Consulting Provider: Villa Mi Reason for Consult: ESRD on dialysis EMERGENT Consult: No Notified: Yes Date Notified: 02/28/21 Time Notified: 10:00 Method of Notification: Answering Service Comments:: Kaity WILL GIVE TO [place] Reason For Visit: C-DIFFICILE COLITIS; PELVIC ABSCESS Diagnosis Discharge Diagnosis (1) Colonic diverticular abscess: Status: Acute Code(s): K57.20 - Diverticulitis of large intestine with perforation and abscess without bleeding Medications at Discharge Home Medications Lantus Solostar U-100 Insulin 15 unit SUBCUT [facility] 02/28/21 Vitamin B and C 1 tab PO/SL DAILY 02/28/21 Zofran 4 mg PO/SL PRN PRN 02/28/21 allopurinol 150 mg PO DAILY 02/28/21 atorvastatin 40 mg PO [facility] 02/28/21 clonidine HCl 0.1 mg PO DAILY 02/28/21 clopidogrel 75 mg PO [facility] 02/28/21 ergocalciferol (vitamin D2) [Vitamin D2] 50,000 unit PO DAILY 02/28/21 escitalopram oxalate 20 mg PO [facility] 02/28/21 furosemide 40 mg PO DAILY 02/28/21 guaifenesin 10 ml PO/SL PRN PRN 02/28/21 hydralazine 50 mg PO Q8H 02/28/21 isosorbide mononitrate 60 mg PO [facility] 02/28/21 lisinopril 10 mg PO DAILY 02/28/21 metoprolol tartrate 25 mg PO TID 02/28/21 sevelamer carbonate 800 mg PO ACH[facility] 02/28/21 sodium bicarbonate 1,850 mg PO TID 02/28/21 vancomycin 125 mg PO TID 02/28/21 linezolid 600 mg PO BID #10 tab 03/02/21 Hospital Course Operations None Procedures None Summary of Care Provided Minutes Spent on Discharge: 45 Hospital Course: Patient is a 75-year-old female with an extensive past medical history as outlined was admitted through the ED on 02/28/2021 with a complaint of excruciating left lower quadrant abdominal pain which had been going on since December 2020, with associated nausea and vomiting. She also had diarrhea but said it was improving and she also had anorexia. She came in from her assisted. He had previously been diagnosed with C. difficile and was on vancomycin at time of admission. At [facility] prior to her coming here, she was noted to have VRE in her urine but was thought to be colonization. 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 She was therefore admitted to be managed for pelvic abscess and VRE cystitis. General surgery was consulted. She was also started on IV Zosyn. Hospital course was complicated by altered mental status and acute metabolic encephalopathy which was thought to be a stroke. Stroke alert was called and she had a CT of the brain which was negative for any evidence of stroke. Symptoms subsequently completely resolved and patient felt better. She had no focal weakness and no symptoms whatsoever the point it was a stroke. Patient also did not want to have an MRI of the brain and also did not think that patient likely had a stroke and she had recovered completely from the episode of altered mental status. She had insertion of a drain in the pelvic abscess by radiology on 03/01/2021. Patient tolerated procedure well. She remained stable and was deemed as ready for discharge on 03/02/2021. She is to follow-up with general surgery on outpatient basis for removal of the drain and according to general surgery, patient will benefit from colectomy on account of the diverticular disease. Patient seen and examined prior to discharge. She felt well and had no active complaints. Review of systems otherwise negative. Labs and vitals reviewed. Medication reviewed and reconciled. She was discharged on p.o. linezolid 600 mg twice a day for 5 days for VRE cystitis. Physical Exam Const alert, oriented x3 and no apparent distress General Appearance: cooperative and comfortable Exam Limitations: no limitations HEENT normocephalic, head/scalp atraumatic, hearing grossly normal bilaterally and moist oral mucous membranes Eyes PERRL and conjunctivae normal Neck no lymphadenopathy Resp normal respiratory effort, no retractions, no use of accessory muscles and clear to auscultation bilaterally Cardio regular rate, regular rhythm, S1 normal heart sound, S2 normal heart sound and no murmurs GI normal to inspection, nondistended, normoactive bowel sounds GI Narrative: mild generalised tenderness, no guarding or rebound tenderness. pelvic drain in place. Extremity normal to inspection Skin no rashes or lesions noted Neuro oriented x3, CN's II-XII intact bilaterally and moves all extremities Sensorium / Orientation: awake and alert Psych affect normal Medical Records Data Medical Nutrition Assessment Dietitian: Malnutrition Criteria Met Start: 02/28/21 12:52 Freq: Status: Active Protocol: Document 02/28/21 12:52 (Rec: 02/28/21 12:52 [id number]) Nutrition Malnutrition Evidence of Malnutrition Exists Yes Malnutrition (severe): Chronic Evidenced By Suboptimal Energy Intake ( Severe),Weight Loss (Severe) Clinical Problem Chronic Disease or Condition Related Malnutrition Etiology severe malnutrition in context of chronic condition ( dialysis) r/t inadequate energy intake w/ increased energy needs d/t ESRD Signs/Symptoms as evidenced by unintentional 44.2#/21% wt loss x 4 months, estimated PO intake meeting < 50% of estimated nutritional needs > 3 months Status Active Problem Recommendation Dietitian Recommendations/Changes When medically indicated, recommend advance diet as tolerated to renal, 2000 calorie, consistent CHO diet. 120mL Nepro CarbSteady ONS 4x/ day w/ medpass. Daily wts. Will consider liberalizing diet if PO intake is poor. Weight / BMI Weight Weight: 162 lb 14.746 oz Body Mass Index (BMI) 28.7 ABG / Lab / Microbiology Data Result Diagrams: 03/02/21 06:15 03/02/21 06:15 Laboratory: Laboratory Results - last 24 hr 02/28/21 03:35: Diff Path Review Reviewed 03/01/21 08:14: Diff Path Review Reviewed 03/01/21 12:27: POC Glucose 142 H 03/01/21 17:53: POC Glucose 156 H 03/02/21 00:03: POC Glucose 182 H 03/02/21 06:15: WBC 13.8 H, RBC 4.63, Hgb 12.4, Hct 40.7, MCV 87.9 D, MCH 26.8 L, MCHC 30.5 L D, RDW Std Deviation 63.0 H, RDW Coeff of Jacinto 19.8 H, Plt Count 172, MPV 10.5, Immature Gran % (Auto) CUSTOMER CARE TEAM COACH, Neut % (Auto) CUSTOMER CARE TEAM COACH, Lymph % (Auto) CUSTOMER CARE TEAM COACH, [place] % (Auto) CUSTOMER CARE TEAM COACH, Eos % (Auto) CUSTOMER CARE TEAM COACH, Baso % (Auto) CUSTOMER CARE TEAM COACH, Absolute Neuts (auto) 11.5 H, Absolute Lymphs (auto) 1.80, Total Counted 100, Neutrophils % (Manual) 78 H, Band Neutrophils % 5, Lymphocytes % (Manual) 13 L, Monocytes % (Manual) 1, Metamyelocytes % 2 H, Myelocytes % 1 H, Nucleated RBC % CUSTOMER CARE TEAM COACH, Diff Path Review May foll, Atypical Lymphocytes 2+, Platelet Estimate ADEQUATE, RBC Morphology NORM C+C, Anisocytosis 2+ 03/02/21 06:15: Sodium 138, Potassium 5.0, Chloride 103, Carbon Dioxide 30.0, Anion Gap 5, BUN 29 H, Creatinine 4.40 H, Estim Creat Clear Calc 9.54, Est GFR (MDRD) Af Amer 13 L, Est GFR (MDRD) Non-Af 10 L, BUN/Creatinine Ratio 6.6 L, Glucose 136 H, Calcium 7.7 L 03/02/21 06:52: POC Glucose 131 H Microbiology: Microbiology 02/28/21 05:00 Blood Culture (Wb) - Left Hand Blood Culture - Preliminary No growth in 48 hours. 02/28/21 04:40 Blood Culture (Wb) - Anticubital Left Blood Culture - Preliminary No growth in 48 hours. 02/28/21 04:35 Urine Catheter - Catheter Urine Culture - Final Vancomycin Resist. E. faecium 02/28/21 04:53 Nasal Secretion SARS-CoV-2 Antigen (Rapid) - Final D/C Instructions Discharge Diet: Low fat / Low cholesterol Discharge Activity: Return to Normal Activity Call your doctor if you observe: Fever of 101 or Higher, Shortness of breath, Dizziness, Swelling in the ankles, Increased palpitations (irregular heartbeat) and Uncontrolled pain Meaningful Use Info Meaningful Use Diagnoses (Choose all that apply): None applicable Discharge Plan Admission Admit Date/Time: 02/28/21 05:04 Primary Reason for Your Visit: pelvic abscess Attending Provider: Maria Teresa Sparks Primary Care Provider: Valentín Escobar Consulting Providers: Villa Mi ; Clint Singh Instructions Patient Instructions: Abscess Drainage Discharge Orders/Prescriptions Prescriptions: New linezolid 600 mg tablet 600 mg PO BID Qty: 10 RF: 0 Continued atorvastatin 40 mg tablet 40 mg PO PCHS RF: 0 allopurinol 300 mg tablet 150 mg PO DAILY RF: 0 clopidogrel 75 mg tablet 75 mg PO PCHS RF: 0 Lantus Solostar U-100 Insulin 100 unit/mL (3 mL) insulin pen 15 unit SUBCUT [facility] RF: 0 escitalopram oxalate 20 mg tablet 20 mg PO [facility] RF: 0 furosemide 40 mg tablet 40 mg PO DAILY RF: 0 clonidine HCl 0.1 mg tablet 0.1 mg PO DAILY RF: 0 vancomycin 125 mg capsule 125 mg PO TID RF: 0 isosorbide mononitrate 60 mg tablet extended release 24 hr 60 mg PO PCHS RF: 0 sodium bicarbonate 650 mg tablet 1,850 mg PO TID RF: 0 lisinopril 10 mg tablet 10 mg PO DAILY RF: 0 hydralazine 50 mg tablet 50 mg PO Q8H RF: 0 ergocalciferol (vitamin D2) [Vitamin D2] 1,250 mcg (50,000 unit) capsule 50,000 unit PO DAILY RF: 0 metoprolol tartrate 25 mg tablet 25 mg PO TID RF: 0 sevelamer carbonate 800 mg tablet 800 mg PO ACHS RF: 0 Vitamin B and C 1 tab PO/SL DAILY RF: 0 Zofran 4 mg PO/SL PRN PRN (Reason: Nausea And Vomiting) RF: 0 guaifenesin 10 ml PO/SL PRN PRN (Reason: Cough) RF: 0 Referrals / Follow Up: Clint Singh MD [STAFF PHYSICIAN] - In 1 Week Valentín Escobar MD [Primary Care Provider] - Within 2 Weeks Disposition Disposition (needs filled in before D/C Order can be placed): Home, Self Care Charges/Coding Visit Charges Inpatient E&M: 50176 Disch Hosp
[2021-03-02 11:56] LABS: Bedside Glucose 180 mg/dL (70-110)
--- NOTE | 2021-03-02 12:01 | CASEMGMT ---
TREVON Peacock at [facility] letting her know patient will be returning today. Await orders. Anjali Carlos EXCHANGE CONSULTANT STIVEN
[2021-03-02 13:32] LABS: Pathologist Review Reviewed
--- NOTE | 2021-03-02 15:14 | PCM.TXEXTCAR ---
Diet 03/01/21 15:37 Diet: Renal - General Food consistency:: Regular Liquid Consistency:: Regular/Thin Is pt able to select menu?: No Routine Orders/Code Status Enema Type: Fleetz Enema Frequency: Daily PRN Suppository Type: Dulcolax 10mg Suppository Frequency: Daily PRN O2 Frequency: PRN Keep PO Greater than or Equal to (%): 90 Wound(s) rt lower lip: Wound Type: Abrasion coccyx: Wound Type: Pressure Injury Therapies Weight Bearing: Weight bearing as tolerated Physical Therapy: Eval and Treat Occupational Therapy: Eval and Treat Problem/Diagnosis (1) Colonic diverticular abscess: Status: Acute Allergies/Procedures Done in Hospital Allergies Tetanus Vaccines and Toxoid Allergy (Verified 03/01/21 09:15) Swelling Procedures: - (pelvic abscess drainage with drain in place) Type of Care/Length of Stay Estimated LOS: Convalescent Care Less Than 30 days Type of Care Needed: Skilled Rehab Potential: Fair Prognosis: Fair Additional Orders/Day of Discharge Day of Discharge: 03/02/21 Dietary and Speech Recommendations Dietitian Recommendations/Changes: When medically indicated, recommend advance diet as tolerated to renal, 2000 calorie, consistent CHO diet. 120mL Nepro CarbSteady ONS 4x/day w/ medpass. Daily wts. Will consider liberalizing diet if PO intake is poor. Discharge Plan Admission Admit Date/Time: 02/28/21 05:04 Primary Reason for Your Visit: pelvic abscess Attending Provider: Maria Teresa Sparks Primary Care Provider: Valentín Escobar Consulting Providers: Villa Mi ; Clint Singh Instructions Patient Instructions: Abscess Drainage Discharge Orders/Prescriptions Prescriptions: New linezolid 600 mg tablet 600 mg PO BID Qty: 10 RF: 0 Continued atorvastatin 40 mg tablet 40 mg PO PCHS RF: 0 allopurinol 300 mg tablet 150 mg PO DAILY RF: 0 clopidogrel 75 mg tablet 75 mg PO PCHS RF: 0 Lantus Solostar U-100 Insulin 100 unit/mL (3 mL) insulin pen 15 unit SUBCUT [facility] RF: 0 escitalopram oxalate 20 mg tablet 20 mg PO PCHS RF: 0 furosemide 40 mg tablet 40 mg PO DAILY RF: 0 clonidine HCl 0.1 mg tablet 0.1 mg PO DAILY RF: 0 vancomycin 125 mg capsule 125 mg PO TID RF: 0 isosorbide mononitrate 60 mg tablet extended release 24 hr 60 mg PO PCHS RF: 0 sodium bicarbonate 650 mg tablet 1,850 mg PO TID RF: 0 lisinopril 10 mg tablet 10 mg PO DAILY RF: 0 hydralazine 50 mg tablet 50 mg PO Q8H RF: 0 ergocalciferol (vitamin D2) [Vitamin D2] 1,250 mcg (50,000 unit) capsule 50,000 unit PO DAILY RF: 0 metoprolol tartrate 25 mg tablet 25 mg PO TID RF: 0 sevelamer carbonate 800 mg tablet 800 mg PO ACHS RF: 0 Vitamin B and C 1 tab PO/SL DAILY RF: 0 Zofran 4 mg PO/SL PRN PRN (Reason: Nausea And Vomiting) RF: 0 guaifenesin 10 ml PO/SL PRN PRN (Reason: Cough) RF: 0 Referrals / Follow Up: Clint Singh MD [STAFF PHYSICIAN] - In 1 Week Valentín Escobar MD [Primary Care Provider] - Within 2 Weeks Disposition Disposition (needs filled in before D/C Order can be placed): Home, Self Care
[2021-03-02 16:46] LABS: Bedside Glucose 152 mg/dL (70-110)
--- NOTE | 2021-03-02 16:59 | CASEMGMT ---
TREVON faxed orders and negative COVID to [facility]. TREVON arranged for patient to get picked up at 1830 via cot. TREVON notified community youth secretary, patient, and RN. TREVON left a message for Madonna. All in agreement with d/c plan. Plan: d/c back to [facility] under skilled level of care. [facility] transported via cot due to her pelvic abscess and drain. Anjali Carlos FOUR CORNER STAYER MACHINE OPERATOR AUTOMATION SPECIALIST
--- NOTE | 2021-03-02 17:16 | CASEMGMT ---
SW also left a message for patient's daughter. Anjali Carlos COMPOSITE TECHNICIAN ELECTRIC SERVICEMAN
--- NOTE | 2021-03-02 17:28 | NURSING ---
Attempted to call report to [facility] for pt d/c. After speaking to 4 different people, still unable to reach nurse to give report. Will try later.
--- NOTE | 2021-03-02 19:21 | NURSING ---
Report given to nurse for pt d/c to [facility].
== END 2021-03-02 18:37 | disposition home or self-care (01) | DRG 391 ==
LOC: ED 05:21 → PCU 06:26
PROVIDERS: Internal Medicine; Admitting Provider Hospitalist; Emergency Provider Emergency Medicine; PCP Family Medicine; Visit Provider Student in an Organized Health Care Education/Training Program
DX: K57.20 Diverticulitis of large intestine with perforation and abscess without bleeding (principal); N18.6 End stage renal disease; K65.1 Peritoneal abscess; E43 Unspecified severe protein-calorie malnutrition; A04.72 Enterocolitis due to Clostridium difficile, not specified as recurrent; I69.354 Hemiplegia and hemiparesis following cerebral infarction affecting left non-dominant side; G93.40 Encephalopathy, unspecified; Z16.21 Resistance to vancomycin; I13.2 Hypertensive heart and chronic kidney disease with heart failure and with stage 5 chronic kidney disease, or end stage renal disease; N30.91 Cystitis, unspecified with hematuria; B95.2 Enterococcus as the cause of diseases classified elsewhere; N73.9 Female pelvic inflammatory disease, unspecified; Z99.2 Dependence on renal dialysis; J44.9 Chronic obstructive pulmonary disease, unspecified; I48.91 Unspecified atrial fibrillation; I50.9 Heart failure, unspecified; E11.22 Type 2 diabetes mellitus with diabetic chronic kidney disease; Z87.11 Personal history of peptic ulcer disease; Z87.891 Personal history of nicotine dependence; Z79.02 Long term (current) use of antithrombotics/antiplatelets; I69.30 Unspecified sequelae of cerebral infarction
CPT/HCPCS: 36415; 70450; 70496; 70498; 74176; 75989; 80048; 80053; 81001; 82962; 83605; 83690; 85025; 85610; 85730; 87040; 87077; 87086; 87088; 87186; 87426; 97110; 97162; 97166; 97530; 97535; 97802; 99156; 99285; J7030; J7040; J7050; Q9967; A4216; J0696; J2405

== ENCOUNTER 2021-03-08 04:00 | Outpatient (REF) | payer MEDICARE, SELFPAY ==
[2021-03-08 07:01] LABS: Hematocrit 38.3 % (37-47); Hemoglobin 12.4 g/dL (12.0-15.0); Mean Corp Hgb Conc 32.4 g/dL (32-36); Mean Corpuscular Hgb 27.2 pg (27.0-32.0); Mean Platelet Vol. 11.2 fl (6.2-12.0); Platelet Count 173 K/mm3 (150-450); RBC Distribution Width CV 19.2 % (11.6-14.6); RBC Distribution Width SD 59.5 fl (35.1-43.9); Red Blood Count 4.56 M/mm3 (4.2-5.4); White Blood Count 7.9 K/mm3 (4.4-11.0)
[2021-03-08 07:21] LABS: Anion Gap 10 (5-15); BUN 48 mg/dL (7-18); BUN/Creat Ratio 7.4 RATIO (10-20); Calcium,Total 7.7 mg/dL (8.5-10.1); Chloride 104 mmol/L (98-107); EST Glomerular Filtration Rate 7 mL/min (>60); Est Glom Filt Rate - Afr Amer 8 mL/min (>60); Glucose 48 mg/dL (74-106); Potassium 5.3 mmol/L (3.5-5.1); Sodium Level 137 mmol/L (136-145)
== END 2021-03-08 23:59 | disposition home or self-care (01) ==
LOC: OLS.SW1020 04:00
PROVIDERS: PCP Family Medicine; Visit Provider Family Medicine
DX: J44.9 Chronic obstructive pulmonary disease, unspecified (principal); E11.9 Type 2 diabetes mellitus without complications; I10 Essential (primary) hypertension
CPT/HCPCS: 36415; 80048; 85027